=== PATIENT | female | born 1945 | race Caucasian/White ===

== ENCOUNTER 2019-08-08 22:18 | Inpatient (IN) ==
[2019-08-09] MEDS ORDERED: (Diclofenac Sodium [Voltaren] 2 GM) TP PRN (01:08)
[2019-08-09] MEDS ORDERED: Dextrose Gel 15 GM/37.5 ML TUBE PO PRN ×2 (01:21)
[2019-08-09] MEDS ORDERED: D5% in Water 1,000 ML IVC PRN (01:21)
[2019-08-09] MEDS ORDERED: *HR* Dextrose 50 % in Water (Syg) 50 ML SYRINGE IVP PRN (01:21)
[2019-08-09] MEDS: diazePAM 5 MG TABLET PO PRN ×3 (01:34→20:31)
[2019-08-09 06:24] LABS: Basophils # 0.1 K/mcL (0.0-0.2); Basophils % 0.9 %; Eosinophils # 0.1 K/mcL (0.0-0.6); Eosinophils % 2.5 %; Hematocrit 40.4 % (35.3-44.9); Hemoglobin 13.7 g/dL (11.5-15.4); Immature Granulocytes % 0.4 % (0-4); Lymphocytes # 2.4 K/mcL (0.6-4.6); Lymphocytes % 43.9 %; Mean Corpuscular HGB Conc 33.9 g/dL (31.6-35.5); Mean Corpuscular Hemoglobin 30.9 pg (28.0-33.3); Mean Corpuscular Volume 91.2 fL (83.0-100.0); Mean Platelet Volume 11.1 fL (9.4-12.4); Monocytes # 0.4 K/mcL (0.0-1.3); Monocytes % 6.7 %; Neutrophils # 2.5 K/mcL (1.6-8.9); Platelet Count 190 K/mcL (140-400); Red Blood Count 4.43 M/mcL (3.82-4.97); Red Cell Distribution Width 12.6 % (11.5-14.5); Segmented Neutrophils % 45.6 %; White Blood Count 5.5 K/mcL (4.3-11.1)
[2019-08-09 07:23] LABS: Platelet Estimate Normal (Normal)
[2019-08-09] MEDS ORDERED: *HR* Dextrose 50 % in Water (Vial) 50 ML VIAL IVP PRN (08:40)
[2019-08-09] MEDS: Metoprolol XL (24 HR) Succ 50 MG TAB.ER.24H PO SCH (08:42)
[2019-08-09] MEDS: Aspirin Enteric Coated 81 MG Tablet PO SCH (08:42)
[2019-08-09] MEDS: Carbidopa/Levodopa 25/100 TABLET PO SCH ×4 (08:42→20:31)
[2019-08-09] MEDS: BuPROPion SR (12 HR) 100 MG TABLET PO SCH ×2 (08:42→20:32)
[2019-08-09] MEDS: *HR* GlipiZIDE XL (24 HR) 2.5 MG TABLET PO SCH (08:42)
[2019-08-09] MEDS ORDERED: Insulin DETEMIR 100 UNIT/ML per UNIT SQ SCH (09:00)
[2019-08-09 09:45] LABS: Estimated Average Glucose 235 mg/dl
[2019-08-09] MEDS ORDERED: Tobramycin/Dex Opth DROPS 2.5 ML BOTTLE LEFT EYE SCH (12:15)
[2019-08-09] MEDS: Tobramycin/Dex Opth DROPS 2.5 ML BOTTLE LEFT EYE SCH ×2 (13:21→16:50)
[2019-08-09] MEDS: Tobramycin/Dex Opth DROPS 2.5 ML BOTTLE RIGHT EYE SCH ×2 (13:21→16:50)
[2019-08-09] MEDS: Famotidine 20 MG TABLET PO SCH (20:32)
[2019-08-10] MEDS: Tobramycin/Dex Opth DROPS 2.5 ML BOTTLE LEFT EYE SCH ×3 (00:40→16:50)
[2019-08-10] MEDS: Tobramycin/Dex Opth DROPS 2.5 ML BOTTLE RIGHT EYE SCH ×3 (00:40→16:50)
[2019-08-10] MEDS: *HR* Enoxaparin 40 MG/0.4 ML SYRINGE SQ SCH (06:46)
[2019-08-10] MEDS: Aspirin Enteric Coated 81 MG Tablet PO SCH (08:36)
[2019-08-10] MEDS: Metoprolol XL (24 HR) Succ 50 MG TAB.ER.24H PO SCH (08:36)
[2019-08-10] MEDS: Carbidopa/Levodopa 25/100 TABLET PO SCH ×4 (08:37→21:02)
[2019-08-10] MEDS: Insulin DETEMIR 100 UNIT/ML X5UNITS SQ SCH (08:37)
[2019-08-10] MEDS: *HR* GlipiZIDE XL (24 HR) 2.5 MG TABLET PO SCH (08:37)
[2019-08-10] MEDS: BuPROPion SR (12 HR) 100 MG TABLET PO SCH ×2 (08:37→21:02)
[2019-08-10] MEDS: Insulin LISPRO 300 UNITS/3 ML VIAL SQ SCH ×3 (12:11→21:00)
[2019-08-10] MEDS: Acetaminophen 325 MG TABLET PO PRN (16:59)
[2019-08-10] MEDS: Famotidine 20 MG TABLET PO SCH (21:02)
[2019-08-10] MEDS: *HR* OxyCODONE/APAP 10/325 TABLET PO PRN (21:44)
[2019-08-11] MEDS: Tobramycin/Dex Opth DROPS 2.5 ML BOTTLE RIGHT EYE SCH ×4 (00:21→21:42)
[2019-08-11] MEDS: Tobramycin/Dex Opth DROPS 2.5 ML BOTTLE LEFT EYE SCH ×4 (00:22→21:43)
[2019-08-11] MEDS: *HR* Enoxaparin 40 MG/0.4 ML SYRINGE SQ SCH (06:01)
[2019-08-11] MEDS: Insulin DETEMIR 100 UNIT/ML X5UNITS SQ SCH (08:40)
[2019-08-11] MEDS: Metoprolol XL (24 HR) Succ 50 MG TAB.ER.24H PO SCH (08:42)
[2019-08-11] MEDS: *HR* GlipiZIDE XL (24 HR) 2.5 MG TABLET PO SCH (08:42)
[2019-08-11] MEDS: BuPROPion SR (12 HR) 100 MG TABLET PO SCH ×2 (08:42→21:41)
[2019-08-11] MEDS: Aspirin Enteric Coated 81 MG Tablet PO SCH (08:42)
[2019-08-11] MEDS: Insulin LISPRO 300 UNITS/3 ML VIAL SQ SCH ×4 (08:43→21:42)
[2019-08-11] MEDS: Carbidopa/Levodopa 25/100 TABLET PO SCH ×4 (08:43→21:41)
[2019-08-11] MEDS: Acetaminophen 325 MG TABLET PO PRN (08:45)
[2019-08-11] MEDS: Famotidine 20 MG TABLET PO SCH (21:41)
[2019-08-12] MEDS: *HR* Enoxaparin 40 MG/0.4 ML SYRINGE SQ SCH (06:50)
[2019-08-12] MEDS: Insulin DETEMIR 100 UNIT/ML X5UNITS SQ SCH (09:35)
[2019-08-12] MEDS: Tobramycin/Dex Opth DROPS 2.5 ML BOTTLE RIGHT EYE SCH ×3 (09:36→23:32)
[2019-08-12] MEDS: Insulin LISPRO 300 UNITS/3 ML VIAL SQ SCH ×4 (09:36→20:24)
[2019-08-12] MEDS: Tobramycin/Dex Opth DROPS 2.5 ML BOTTLE LEFT EYE SCH ×3 (09:36→23:32)
[2019-08-12] MEDS: Metoprolol XL (24 HR) Succ 50 MG TAB.ER.24H PO SCH (09:37)
[2019-08-12] MEDS: Aspirin Enteric Coated 81 MG Tablet PO SCH (09:37)
[2019-08-12] MEDS: *HR* GlipiZIDE XL (24 HR) 2.5 MG TABLET PO SCH (09:37)
[2019-08-12] MEDS: Carbidopa/Levodopa 25/100 TABLET PO SCH ×4 (09:37→20:24)
[2019-08-12] MEDS: BuPROPion SR (12 HR) 100 MG TABLET PO SCH ×2 (09:41→20:24)
[2019-08-12] MEDS: Famotidine 20 MG TABLET PO SCH (20:24)
[2019-08-13] MEDS: *HR* Enoxaparin 40 MG/0.4 ML SYRINGE SQ SCH (05:22)
[2019-08-13] MEDS: Insulin LISPRO 300 UNITS/3 ML VIAL SQ SCH ×4 (08:08→20:20)
[2019-08-13] MEDS: *HR* GlipiZIDE XL (24 HR) 2.5 MG TABLET PO SCH (08:32)
[2019-08-13] MEDS: BuPROPion SR (12 HR) 100 MG TABLET PO SCH ×2 (08:32→20:22)
[2019-08-13] MEDS: Metoprolol XL (24 HR) Succ 50 MG TAB.ER.24H PO SCH (08:32)
[2019-08-13] MEDS: Carbidopa/Levodopa 25/100 TABLET PO SCH ×4 (08:33→20:22)
[2019-08-13] MEDS: Insulin DETEMIR 100 UNIT/ML X5UNITS SQ SCH (08:33)
[2019-08-13] MEDS: Aspirin Enteric Coated 81 MG Tablet PO SCH (08:33)
[2019-08-13] MEDS: Tobramycin/Dex Opth DROPS 2.5 ML BOTTLE LEFT EYE SCH ×2 (08:34→16:38)
[2019-08-13] MEDS: Tobramycin/Dex Opth DROPS 2.5 ML BOTTLE RIGHT EYE SCH ×2 (08:34→16:38)
[2019-08-13] MEDS: *HR* OxyCODONE/APAP 10/325 TABLET PO PRN (14:42)
[2019-08-13] MEDS: Famotidine 20 MG TABLET PO SCH (20:22)
[2019-08-14] MEDS: Tobramycin/Dex Opth DROPS 2.5 ML BOTTLE RIGHT EYE SCH ×3 (00:02→15:22)
[2019-08-14] MEDS: Tobramycin/Dex Opth DROPS 2.5 ML BOTTLE LEFT EYE SCH ×3 (00:02→15:22)
[2019-08-14] MEDS: *HR* Enoxaparin 40 MG/0.4 ML SYRINGE SQ SCH (06:19)
[2019-08-14] MEDS: Insulin LISPRO 300 UNITS/3 ML VIAL SQ SCH ×4 (08:18→20:03)
[2019-08-14] MEDS: Insulin DETEMIR 100 UNIT/ML X5UNITS SQ SCH (08:19)
[2019-08-14] MEDS: Aspirin Enteric Coated 81 MG Tablet PO SCH (08:26)
[2019-08-14] MEDS: BuPROPion SR (12 HR) 100 MG TABLET PO SCH ×2 (08:26→20:06)
[2019-08-14] MEDS: *HR* OxyCODONE/APAP 10/325 TABLET PO PRN (08:26)
[2019-08-14] MEDS: Metoprolol XL (24 HR) Succ 50 MG TAB.ER.24H PO SCH (08:28)
[2019-08-14] MEDS: Carbidopa/Levodopa 25/100 TABLET PO SCH ×4 (08:28→20:03)
[2019-08-14] MEDS: *HR* GlipiZIDE XL (24 HR) 2.5 MG TABLET PO SCH (08:28)
[2019-08-14] MEDS: Famotidine 20 MG TABLET PO SCH (20:03)
[2019-08-15] MEDS: Tobramycin/Dex Opth DROPS 2.5 ML BOTTLE LEFT EYE SCH ×5 (00:11→23:26)
[2019-08-15] MEDS: Tobramycin/Dex Opth DROPS 2.5 ML BOTTLE RIGHT EYE SCH ×5 (00:11→23:25)
[2019-08-15] MEDS: *HR* Enoxaparin 40 MG/0.4 ML SYRINGE SQ SCH (06:07)
[2019-08-15] MEDS: Carbidopa/Levodopa 25/100 TABLET PO SCH ×4 (09:08→19:36)
[2019-08-15] MEDS: BuPROPion SR (12 HR) 100 MG TABLET PO SCH ×2 (09:08→19:36)
[2019-08-15] MEDS: Aspirin Enteric Coated 81 MG Tablet PO SCH (09:08)
[2019-08-15] MEDS: Metoprolol XL (24 HR) Succ 50 MG TAB.ER.24H PO SCH (09:08)
[2019-08-15] MEDS: *HR* GlipiZIDE XL (24 HR) 2.5 MG TABLET PO SCH (09:08)
[2019-08-15] MEDS: Insulin DETEMIR 100 UNIT/ML X5UNITS SQ SCH (09:08)
[2019-08-15] MEDS: Insulin LISPRO 300 UNITS/3 ML VIAL SQ SCH ×4 (09:09→19:31)
[2019-08-15] MEDS: *HR* OxyCODONE/APAP 10/325 TABLET PO PRN (12:13)
[2019-08-15] MEDS: Famotidine 20 MG TABLET PO SCH (19:36)
[2019-08-16] MEDS: *HR* Enoxaparin 40 MG/0.4 ML SYRINGE SQ SCH (04:26)
[2019-08-16] MEDS: Insulin LISPRO 300 UNITS/3 ML VIAL SQ SCH ×4 (07:42→19:42)
[2019-08-16] MEDS: Insulin DETEMIR 100 UNIT/ML X5UNITS SQ SCH (08:36)
[2019-08-16] MEDS: Tobramycin/Dex Opth DROPS 2.5 ML BOTTLE RIGHT EYE SCH ×2 (08:37→17:00)
[2019-08-16] MEDS: Tobramycin/Dex Opth DROPS 2.5 ML BOTTLE LEFT EYE SCH ×2 (08:37→17:00)
[2019-08-16] MEDS: BuPROPion SR (12 HR) 100 MG TABLET PO SCH ×2 (08:38→19:42)
[2019-08-16] MEDS: Metoprolol XL (24 HR) Succ 50 MG TAB.ER.24H PO SCH (08:39)
[2019-08-16] MEDS: Carbidopa/Levodopa 25/100 TABLET PO SCH ×4 (08:39→19:42)
[2019-08-16] MEDS: Aspirin Enteric Coated 81 MG Tablet PO SCH (08:39)
[2019-08-16] MEDS: *HR* GlipiZIDE XL (24 HR) 2.5 MG TABLET PO SCH (08:41)
[2019-08-16] MEDS: *HR* OxyCODONE/APAP 10/325 TABLET PO PRN (08:45)
[2019-08-16] MEDS: Famotidine 20 MG TABLET PO SCH (19:42)
[2019-08-17] MEDS: Tobramycin/Dex Opth DROPS 2.5 ML BOTTLE RIGHT EYE SCH ×2 (00:48→09:27)
[2019-08-17] MEDS: Tobramycin/Dex Opth DROPS 2.5 ML BOTTLE LEFT EYE SCH ×2 (00:48→09:27)
[2019-08-17] MEDS: *HR* Enoxaparin 40 MG/0.4 ML SYRINGE SQ SCH (05:56)
[2019-08-17 07:28] VITALS: BP 124/56
[2019-08-17] MEDS: *HR* GlipiZIDE XL (24 HR) 2.5 MG TABLET PO SCH (09:25)
[2019-08-17] MEDS: BuPROPion SR (12 HR) 100 MG TABLET PO SCH (09:25)
[2019-08-17] MEDS: Aspirin Enteric Coated 81 MG Tablet PO SCH (09:26)
[2019-08-17] MEDS: Insulin DETEMIR 100 UNIT/ML X5UNITS SQ SCH (09:26)
[2019-08-17] MEDS: Metoprolol XL (24 HR) Succ 50 MG TAB.ER.24H PO SCH (09:26)
[2019-08-17] MEDS: Insulin LISPRO 300 UNITS/3 ML VIAL SQ SCH (09:27)
[2019-08-17] MEDS: Carbidopa/Levodopa 25/100 TABLET PO SCH (09:36)
== END 2019-08-17 11:24 | disposition home or self-care (01) | DRG 72 ==
LOC: INPPIK 23:47
PROVIDERS: ADMIT Internal Medicine; ATTEND Internal Medicine

== ENCOUNTER 2021-08-14 03:02 | Inpatient (IN) ==
[2021-08-14] MEDS ORDERED: Melatonin 3 MG TABLET PO PRN (06:37)
[2021-08-14] MEDS ORDERED: Naloxone 0.4 MG/ML INJ IVP PRN (06:37)
[2021-08-14] MEDS: Aspirin Enteric Coated 81 MG Tablet PO SCH (09:49)
[2021-08-14] MEDS: CYCLOSPORINE 0.05% OP SCH (09:49)
[2021-08-14] MEDS ORDERED: diazePAM 10 MG TABLET PO PRN (13:42)
[2021-08-14] MEDS: *HR* OxyCODONE/APAP 10/325 TABLET PO PRN (14:06)
[2021-08-14] MEDS ORDERED: diazePAM 5 MG TABLET PO PRN (14:15)
[2021-08-14] MEDS ORDERED: Dextrose Gel 15 GM/37.5 ML TUBE PO PRN ×2 (15:20)
[2021-08-14] MEDS ORDERED: D5% in Water 1,000 ML IVC PRN (15:20)
[2021-08-14] MEDS ORDERED: *HR* Dextrose 50 % in Water (Syg) 50 ML SYRINGE IVP PRN (15:20)
[2021-08-14] MEDS ORDERED: Acetaminophen 325 MG TABLET PO PRN (15:25)
[2021-08-14] MEDS ORDERED: Ondansetron ODT 4 MG TAB.RAPDIS SL PRN (15:26)
[2021-08-14] MEDS: Insulin LISPRO 300 UNITS/3 ML VIAL SUBQ SCH ×2 (16:24→20:54)
[2021-08-14] MEDS: carvediloL 6.25 MG TABLET PO SCH (16:24)
[2021-08-14] MEDS: Gabapentin 300 MG CAPSULE PO SCH (20:20)
[2021-08-14] MEDS: QUEtiapine Fumarate 25 MG TABLET PO SCH (20:20)
[2021-08-14] MEDS: BuPROPion SR (12 HR) 100 MG TABLET PO SCH (21:07)
[2021-08-15] MEDS: *HR* Enoxaparin 40 MG/0.4 ML SYRINGE SQ SCH (05:22)
[2021-08-15 06:50] LABS: Basophils % 0.8 %; Eosinophils # 0.1 K/mcL (0.0-0.6); Eosinophils % 2.7 %; Hematocrit 35.9 % (35.3-44.9); Immature Granulocytes % 0.2 % (0-4); Lymphocytes # 1.8 K/mcL (0.6-4.6); Lymphocytes % 36.1 %; Mean Corpuscular HGB Conc 33.4 g/dL (31.6-35.5); Mean Corpuscular Hemoglobin 30.2 pg (28.0-33.3); Mean Corpuscular Volume 90.2 fL (83.0-100.0); Mean Platelet Volume 9.4 fL (9.4-12.4); Monocytes # 0.4 K/mcL (0.0-1.3); Monocytes % 8.2 %; Neutrophils # 2.5 K/mcL (1.6-8.9); Platelet Count 173 K/mcL (140-400); Red Blood Count 3.98 M/mcL (3.82-4.97); Red Cell Distribution Width 12.5 % (11.5-14.5); White Blood Count 4.9 K/mcL (4.3-11.1)
[2021-08-15 07:07] LABS: BUN/Creatinine Ratio 14 (6-26); Blood Urea Nitrogen 10 mg/dL (8-23); Calcium 8.9 mg/dL (8.6-10.3); Carbon Dioxide 30 mEq/L (23-29); Chloride 102 mEq/L (98-107); Glucose 162 mg/dL (70-105); Osmolality,Calculated 291 (280-300); Potassium 3.7 mEq/L (3.5-5.1); Sodium 139 mEq/L (136-145); eGFR For African Americans > 60 (> 60); eGFR For Non-African Americans > 60 (> 60)
[2021-08-15] MEDS: Insulin LISPRO 300 UNITS/3 ML VIAL SUBQ SCH ×4 (08:47→21:28)
[2021-08-15] MEDS: Gabapentin 300 MG CAPSULE PO SCH ×2 (08:50→21:39)
[2021-08-15] MEDS: BuPROPion SR (12 HR) 100 MG TABLET PO SCH ×2 (08:50→21:39)
[2021-08-15] MEDS: Aspirin Enteric Coated 81 MG Tablet PO SCH (08:50)
[2021-08-15] MEDS: carvediloL 6.25 MG TABLET PO SCH ×2 (08:50→16:08)
[2021-08-15] MEDS: CYCLOSPORINE 0.05% OP SCH (08:51)
[2021-08-15] MEDS: Insulin DETEMIR 100 UNIT/ML X5UNITS SUBQ SCH (08:51)
[2021-08-15] MEDS: *HR* OxyCODONE/APAP 10/325 TABLET PO PRN (14:00)
[2021-08-15] MEDS: QUEtiapine Fumarate 25 MG TABLET PO SCH (21:39)
[2021-08-16] MEDS: Piperacillin/Tazobactam 3.375 GM in 0.9 % Sodium Chloride Mini Bag 100 ML IVPB SCH ×3 (00:31→17:03)
[2021-08-16] MEDS: *HR* Enoxaparin 40 MG/0.4 ML SYRINGE SQ SCH (05:22)
[2021-08-16 08:06] LABS: Basophils % 0.8 %; Eosinophils # 0.2 K/mcL (0.0-0.6); Hematocrit 37.2 % (35.3-44.9); Hemoglobin 12.2 g/dL (11.5-15.4); Immature Granulocytes % 0.2 % (0-4); Lymphocytes % 38.7 %; Mean Corpuscular HGB Conc 32.8 g/dL (31.6-35.5); Mean Corpuscular Hemoglobin 29.7 pg (28.0-33.3); Mean Corpuscular Volume 90.5 fL (83.0-100.0); Mean Platelet Volume 9.2 fL (9.4-12.4); Monocytes # 0.4 K/mcL (0.0-1.3); Monocytes % 8.1 %; Neutrophils # 2.5 K/mcL (1.6-8.9); Platelet Count 179 K/mcL (140-400); Red Blood Count 4.11 M/mcL (3.82-4.97); Red Cell Distribution Width 12.7 % (11.5-14.5); Segmented Neutrophils % 48.2 %; White Blood Count 5.2 K/mcL (4.3-11.1)
[2021-08-16] MEDS: Gabapentin 300 MG CAPSULE PO SCH ×2 (08:59→20:12)
[2021-08-16] MEDS: BuPROPion SR (12 HR) 100 MG TABLET PO SCH ×2 (08:59→20:12)
[2021-08-16] MEDS: *HR* OxyCODONE/APAP 10/325 TABLET PO PRN ×2 (08:59→17:03)
[2021-08-16] MEDS: Capsaicin 0.025% 60 GM TUBE TP PRN (08:59)
[2021-08-16] MEDS: Aspirin Enteric Coated 81 MG Tablet PO SCH (08:59)
[2021-08-16] MEDS: carvediloL 6.25 MG TABLET PO SCH ×2 (09:00→17:03)
[2021-08-16] MEDS: Insulin DETEMIR 100 UNIT/ML X5UNITS SUBQ SCH (09:00)
[2021-08-16] MEDS: CYCLOSPORINE 0.05% OP SCH (09:00)
[2021-08-16] MEDS: Insulin LISPRO 300 UNITS/3 ML VIAL SUBQ SCH ×4 (09:01→20:13)
[2021-08-16 09:30] LABS: BUN/Creatinine Ratio 17 (6-26); Blood Urea Nitrogen 15 mg/dL (8-23); Carbon Dioxide 28 mEq/L (23-29); Chloride 102 mEq/L (98-107); Glucose 158 mg/dL (70-105); Osmolality,Calculated 292 (280-300); Potassium 3.8 mEq/L (3.5-5.1); Sodium 139 mEq/L (136-145); eGFR For African Americans > 60 (> 60); eGFR For Non-African Americans > 60 (> 60)
[2021-08-16] MEDS: QUEtiapine Fumarate 25 MG TABLET PO SCH (20:12)
[2021-08-17] MEDS: Piperacillin/Tazobactam 3.375 GM in 0.9 % Sodium Chloride Mini Bag 100 ML IVPB SCH ×3 (00:09→17:13)
[2021-08-17] MEDS: *HR* Enoxaparin 40 MG/0.4 ML SYRINGE SQ SCH (05:45)
[2021-08-17] MEDS: *HR* OxyCODONE/APAP 10/325 TABLET PO PRN (08:19)
[2021-08-17] MEDS: BuPROPion SR (12 HR) 100 MG TABLET PO SCH (08:19)
[2021-08-17] MEDS: Gabapentin 300 MG CAPSULE PO SCH (08:19)
[2021-08-17] MEDS: carvediloL 6.25 MG TABLET PO SCH ×2 (08:20→16:58)
[2021-08-17] MEDS: Aspirin Enteric Coated 81 MG Tablet PO SCH (08:20)
[2021-08-17] MEDS: CYCLOSPORINE 0.05% OP SCH (08:20)
[2021-08-17] MEDS: Insulin LISPRO 300 UNITS/3 ML VIAL SUBQ SCH ×3 (08:20→16:59)
[2021-08-17] MEDS: Capsaicin 0.025% 60 GM TUBE TP PRN (08:26)
[2021-08-17] MEDS ORDERED: Insulin DETEMIR 100 UNIT/ML X5UNITS SUBQ SCH (09:00)
[2021-08-17 09:48] LABS: Basophils # 0.1 K/mcL (0.0-0.2); Eosinophils # 0.3 K/mcL (0.0-0.6); Eosinophils % 5.4 %; Hematocrit 36.2 % (35.3-44.9); Hemoglobin 11.9 g/dL (11.5-15.4); Immature Granulocytes % 0.4 % (0-4); Lymphocytes # 1.6 K/mcL (0.6-4.6); Lymphocytes % 34.2 %; Mean Corpuscular HGB Conc 32.9 g/dL (31.6-35.5); Mean Corpuscular Hemoglobin 30.1 pg (28.0-33.3); Mean Corpuscular Volume 91.6 fL (83.0-100.0); Mean Platelet Volume 9.5 fL (9.4-12.4); Monocytes # 0.4 K/mcL (0.0-1.3); Monocytes % 7.5 %; Neutrophils # 2.5 K/mcL (1.6-8.9); Platelet Count 197 K/mcL (140-400); Red Blood Count 3.95 M/mcL (3.82-4.97); Red Cell Distribution Width 12.7 % (11.5-14.5); Segmented Neutrophils % 51.5 %; White Blood Count 4.8 K/mcL (4.3-11.1)
[2021-08-17 10:03] LABS: BUN/Creatinine Ratio 16 (6-26); Blood Urea Nitrogen 13 mg/dL (8-23); Calcium 8.8 mg/dL (8.6-10.3); Carbon Dioxide 31 mEq/L (23-29); Chloride 103 mEq/L (98-107); Glucose 272 mg/dL (70-105); Osmolality,Calculated 300 (280-300); Potassium 3.9 mEq/L (3.5-5.1); Sodium 140 mEq/L (136-145); eGFR For African Americans > 60 (> 60); eGFR For Non-African Americans > 60 (> 60)
[2021-08-17 14:59] VITALS: BP 183/91; PULSE 76; RESP 18; TEMP 98.7; O2SAT 99
[2021-08-18] MEDS ORDERED: Ergocalciferol (VIT D2) 50,000 UNIT (1.25MG) CAP PO SCH (09:00)
== END 2021-08-17 18:36 | disposition other institution (70) | DRG 556 ==
LOC: INPPIK
PROVIDERS: ADMIT Student in an Organized Health Care Education/Training Program; ATTEND Internal Medicine

== ENCOUNTER 2021-08-15 18:33 | Inpatient (IN) ==
[2021-08-17] MEDS: *HR* OxyCODONE/APAP 10/325 TABLET PO PRN (18:40)
[2021-08-17] MEDS ORDERED: Ondansetron ODT 4 MG TAB.RAPDIS SL PRN (18:48)
[2021-08-17] MEDS ORDERED: D5% in Water 1,000 ML IVC PRN (18:50)
[2021-08-17] MEDS ORDERED: *HR* Dextrose 50 % in Water (Syg) 50 ML SYRINGE IVP PRN (18:50)
[2021-08-17] MEDS ORDERED: Dextrose Gel 15 GM/37.5 ML TUBE PO PRN ×2 (18:50)
[2021-08-17] MEDS: BuPROPion SR (12 HR) 100 MG TABLET PO SCH (20:15)
[2021-08-17] MEDS: Insulin LISPRO 300 UNITS/3 ML VIAL SUBQ SCH (20:16)
[2021-08-17] MEDS: Gabapentin 300 MG CAPSULE PO SCH (20:16)
[2021-08-17] MEDS: QUEtiapine Fumarate 25 MG TABLET PO SCH (20:16)
[2021-08-18] MEDS: Piperacillin/Tazobactam 3.375 GM VIAL IVPB SCH (00:21)
[2021-08-18] MEDS: *HR* Enoxaparin 40 MG/0.4 ML SYRINGE SQ SCH ×2 (05:44→10:08)
[2021-08-18 08:37] LABS: Basophils % 0.8 %; Eosinophils # 0.2 K/mcL (0.0-0.6); Eosinophils % 4.6 %; Hematocrit 36.2 % (35.3-44.9); Hemoglobin 11.8 g/dL (11.5-15.4); Immature Granulocytes % 0.2 % (0-4); Lymphocytes # 2.1 K/mcL (0.6-4.6); Lymphocytes % 40.7 %; Mean Corpuscular HGB Conc 32.6 g/dL (31.6-35.5); Mean Corpuscular Hemoglobin 29.9 pg (28.0-33.3); Mean Corpuscular Volume 91.6 fL (83.0-100.0); Mean Platelet Volume 9.7 fL (9.4-12.4); Monocytes # 0.4 K/mcL (0.0-1.3); Monocytes % 6.8 %; Neutrophils # 2.4 K/mcL (1.6-8.9); Platelet Count 212 K/mcL (140-400); Red Blood Count 3.95 M/mcL (3.82-4.97); Red Cell Distribution Width 12.8 % (11.5-14.5); Segmented Neutrophils % 46.9 %; White Blood Count 5.2 K/mcL (4.3-11.1)
[2021-08-18 08:47] LABS: BUN/Creatinine Ratio 16 (6-26); Blood Urea Nitrogen 12 mg/dL (8-23); Calcium 8.9 mg/dL (8.6-10.3); Carbon Dioxide 29 mEq/L (23-29); Chloride 106 mEq/L (98-107); Glucose 140 mg/dL (70-105); Osmolality,Calculated 296 (280-300); Potassium 3.8 mEq/L (3.5-5.1); Sodium 142 mEq/L (136-145); eGFR For African Americans > 60 (> 60); eGFR For Non-African Americans > 60 (> 60)
[2021-08-18] MEDS ORDERED: NON-FORMULARY MEDICATION 1 EACH EACH (Insulin Glargine,Hum.Rec.Anlog [Lantus Solostar] 100 SQ SCH (09:00)
[2021-08-18] MEDS ORDERED: Piperacillin/Tazobactam 3.375 GM in 0.9 % Sodium Chloride Mini Bag 100 ML IVPB SCH (10:00)
[2021-08-18] MEDS: BuPROPion SR (12 HR) 100 MG TABLET PO SCH ×2 (10:07→18:23)
[2021-08-18] MEDS: carvediloL 6.25 MG TABLET PO SCH ×2 (10:07→18:23)
[2021-08-18] MEDS: Aspirin Enteric Coated 81 MG Tablet PO SCH (10:07)
[2021-08-18] MEDS: Gabapentin 300 MG CAPSULE PO SCH ×2 (10:07→20:14)
[2021-08-18] MEDS: *HR* GlipiZIDE XL (24 HR) 2.5 MG TABLET PO SCH (10:07)
[2021-08-18] MEDS: Insulin DETEMIR 100 UNIT/ML X5UNITS SUBQ SCH (10:10)
[2021-08-18] MEDS: Insulin LISPRO 300 UNITS/3 ML VIAL SUBQ SCH ×4 (10:14→20:29)
[2021-08-18] MEDS: Ergocalciferol (VIT D2) 50,000 UNIT (1.25MG) CAP PO SCH (10:20)
[2021-08-18 18:20] LABS: Basophils % 0.5 %; Eosinophils # 0.2 K/mcL (0.0-0.6); Eosinophils % 3.6 %; Hematocrit 34.9 % (35.3-44.9); Hemoglobin 11.8 g/dL (11.5-15.4); Immature Granulocytes % 0.3 % (0-4); Lymphocytes # 2.6 K/mcL (0.6-4.6); Lymphocytes % 42.3 %; Mean Corpuscular HGB Conc 33.8 g/dL (31.6-35.5); Mean Corpuscular Hemoglobin 30.3 pg (28.0-33.3); Mean Corpuscular Volume 89.7 fL (83.0-100.0); Mean Platelet Volume 9.3 fL (9.4-12.4); Monocytes # 0.4 K/mcL (0.0-1.3); Monocytes % 6.2 %; Neutrophils # 2.9 K/mcL (1.6-8.9); Platelet Count 217 K/mcL (140-400); Red Blood Count 3.89 M/mcL (3.82-4.97); Red Cell Distribution Width 12.8 % (11.5-14.5); Segmented Neutrophils % 47.1 %; White Blood Count 6.1 K/mcL (4.3-11.1)
[2021-08-18 18:42] LABS: Alanine Aminotransferase 14 Units/L (7-52); Albumin 3.6 g/dL (3.5-5.7); Albumin/Globulin Ratio 1.3 (1.1-2.2); Alkaline Phosphatase 70 Units/L (34-104); Aspartate Amino Transferase 19 Units/L (13-39); BUN/Creatinine Ratio 15 (6-26); Bilirubin,Total 0.4 mg/dL (0.3-1.0); Blood Urea Nitrogen 11 mg/dL (8-23); Carbon Dioxide 29 mEq/L (23-29); Chloride 103 mEq/L (98-107); Globulin 2.8 g/dL (2.4-3.5); Glucose 163 mg/dL (70-105); Magnesium 1.6 mg/dL (1.6-2.6); Osmolality,Calculated 295 (280-300); Potassium 3.6 mEq/L (3.5-5.1); Sodium 141 mEq/L (136-145); Total Protein 6.4 g/dL (6.4-8.9); eGFR For African Americans > 60 (> 60); eGFR For Non-African Americans > 60 (> 60)
[2021-08-18] MEDS: QUEtiapine Fumarate 25 MG TABLET PO SCH (20:14)
[2021-08-19] MEDS: BuPROPion SR (12 HR) 100 MG TABLET PO SCH ×2 (06:04→21:02)
[2021-08-19] MEDS: Aspirin Enteric Coated 81 MG Tablet PO SCH (08:17)
[2021-08-19] MEDS: *HR* GlipiZIDE XL (24 HR) 2.5 MG TABLET PO SCH (08:17)
[2021-08-19] MEDS: carvediloL 6.25 MG TABLET PO SCH ×2 (08:18→17:20)
[2021-08-19] MEDS: Gabapentin 300 MG CAPSULE PO SCH ×2 (08:18→21:02)
[2021-08-19] MEDS: Insulin LISPRO 300 UNITS/3 ML VIAL SUBQ SCH ×4 (08:19→21:13)
[2021-08-19] MEDS: Capsaicin 0.025% 60 GM TUBE TP PRN (08:20)
[2021-08-19] MEDS: Insulin DETEMIR 100 UNIT/ML X5UNITS SUBQ SCH (08:25)
[2021-08-19] MEDS: *HR* OxyCODONE/APAP 10/325 TABLET PO PRN ×2 (08:25→17:20)
[2021-08-19] MEDS: Piperacillin/Tazobactam 3.375 GM VIAL IVPB SCH (10:50)
[2021-08-19] MEDS: QUEtiapine Fumarate 25 MG TABLET PO SCH (21:02)
[2021-08-19] MEDS: diazePAM 5 MG TABLET PO PRN (21:11)
[2021-08-20] MEDS: *HR* OxyCODONE/APAP 10/325 TABLET PO PRN ×2 (06:00→17:25)
[2021-08-20] MEDS: *HR* Enoxaparin 40 MG/0.4 ML SYRINGE SQ SCH (06:00)
[2021-08-20] MEDS: BuPROPion SR (12 HR) 100 MG TABLET PO SCH ×2 (06:01→20:02)
[2021-08-20] MEDS: carvediloL 6.25 MG TABLET PO SCH ×2 (08:26→17:25)
[2021-08-20] MEDS: Aspirin Enteric Coated 81 MG Tablet PO SCH (08:26)
[2021-08-20] MEDS: Acetaminophen 325 MG TABLET PO PRN ×2 (08:27→20:03)
[2021-08-20] MEDS: *HR* GlipiZIDE XL (24 HR) 2.5 MG TABLET PO SCH (08:28)
[2021-08-20] MEDS: Gabapentin 300 MG CAPSULE PO SCH ×2 (08:28→20:03)
[2021-08-20] MEDS: Insulin LISPRO 300 UNITS/3 ML VIAL SUBQ SCH ×4 (08:29→20:37)
[2021-08-20] MEDS: Capsaicin 0.025% 60 GM TUBE TP PRN (08:32)
[2021-08-20] MEDS: Insulin DETEMIR 100 UNIT/ML X5UNITS SUBQ SCH (08:52)
[2021-08-20] MEDS: diazePAM 5 MG TABLET PO PRN (20:02)
[2021-08-20] MEDS: QUEtiapine Fumarate 25 MG TABLET PO SCH (20:03)
[2021-08-21] MEDS: BuPROPion SR (12 HR) 100 MG TABLET PO SCH ×2 (06:14→20:05)
[2021-08-21] MEDS: *HR* Enoxaparin 40 MG/0.4 ML SYRINGE SQ SCH (06:14)
[2021-08-21] MEDS: Insulin LISPRO 300 UNITS/3 ML VIAL SUBQ SCH ×4 (08:22→19:43)
[2021-08-21] MEDS: Gabapentin 300 MG CAPSULE PO SCH ×2 (08:26→19:58)
[2021-08-21] MEDS: *HR* GlipiZIDE XL (24 HR) 2.5 MG TABLET PO SCH (08:26)
[2021-08-21] MEDS: Aspirin Enteric Coated 81 MG Tablet PO SCH (08:27)
[2021-08-21] MEDS: diazePAM 5 MG TABLET PO PRN ×2 (08:27→19:58)
[2021-08-21] MEDS: Insulin DETEMIR 100 UNIT/ML X5UNITS SUBQ SCH (08:27)
[2021-08-21] MEDS: carvediloL 6.25 MG TABLET PO SCH ×2 (08:27→16:54)
[2021-08-21] MEDS: *HR* OxyCODONE/APAP 10/325 TABLET PO PRN (18:36)
[2021-08-21] MEDS: QUEtiapine Fumarate 25 MG TABLET PO SCH (19:58)
[2021-08-22] MEDS: *HR* Enoxaparin 40 MG/0.4 ML SYRINGE SQ SCH (05:49)
[2021-08-22] MEDS: Insulin LISPRO 300 UNITS/3 ML VIAL SUBQ SCH ×4 (07:48→20:13)
[2021-08-22] MEDS: carvediloL 6.25 MG TABLET PO SCH ×2 (08:03→16:32)
[2021-08-22] MEDS: Aspirin Enteric Coated 81 MG Tablet PO SCH (08:03)
[2021-08-22] MEDS: BuPROPion SR (12 HR) 100 MG TABLET PO SCH ×2 (08:03→18:13)
[2021-08-22] MEDS: Gabapentin 300 MG CAPSULE PO SCH ×2 (08:05→20:12)
[2021-08-22] MEDS: *HR* GlipiZIDE XL (24 HR) 2.5 MG TABLET PO SCH (09:16)
[2021-08-22] MEDS: Insulin DETEMIR 100 UNIT/ML X5UNITS SUBQ SCH (10:01)
[2021-08-22] MEDS: *HR* OxyCODONE/APAP 10/325 TABLET PO PRN (20:12)
[2021-08-22] MEDS: diazePAM 5 MG TABLET PO PRN (20:12)
[2021-08-22] MEDS: QUEtiapine Fumarate 25 MG TABLET PO SCH (20:13)
[2021-08-23] MEDS: *HR* Enoxaparin 40 MG/0.4 ML SYRINGE SQ SCH (06:37)
[2021-08-23] MEDS: BuPROPion SR (12 HR) 100 MG TABLET PO SCH ×2 (06:38→18:19)
[2021-08-23] MEDS: Insulin LISPRO 300 UNITS/3 ML VIAL SUBQ SCH ×4 (07:17→20:28)
[2021-08-23] MEDS: carvediloL 6.25 MG TABLET PO SCH ×2 (07:18→16:39)
[2021-08-23] MEDS: *HR* OxyCODONE/APAP 10/325 TABLET PO PRN ×2 (07:21→18:19)
[2021-08-23] MEDS: Gabapentin 300 MG CAPSULE PO SCH ×2 (08:51→20:26)
[2021-08-23] MEDS: Aspirin Enteric Coated 81 MG Tablet PO SCH (08:51)
[2021-08-23] MEDS: Insulin DETEMIR 100 UNIT/ML X5UNITS SUBQ SCH (08:52)
[2021-08-23] MEDS: QUEtiapine Fumarate 25 MG TABLET PO SCH (20:27)
[2021-08-24] MEDS: *HR* Enoxaparin 40 MG/0.4 ML SYRINGE SQ SCH (06:16)
[2021-08-24] MEDS: BuPROPion SR (12 HR) 100 MG TABLET PO SCH ×2 (06:16→18:15)
[2021-08-24] MEDS: Insulin LISPRO 300 UNITS/3 ML VIAL SUBQ SCH ×4 (07:14→20:40)
[2021-08-24] MEDS: carvediloL 6.25 MG TABLET PO SCH ×2 (07:23→16:40)
[2021-08-24] MEDS: *HR* OxyCODONE/APAP 10/325 TABLET PO PRN ×3 (07:27→22:34)
[2021-08-24] MEDS: Aspirin Enteric Coated 81 MG Tablet PO SCH (08:50)
[2021-08-24] MEDS: Gabapentin 300 MG CAPSULE PO SCH ×2 (08:51→20:40)
[2021-08-24] MEDS: Insulin DETEMIR 100 UNIT/ML X5UNITS SUBQ SCH (08:55)
[2021-08-24] MEDS: QUEtiapine Fumarate 25 MG TABLET PO SCH (20:40)
[2021-08-25] MEDS: *HR* Enoxaparin 40 MG/0.4 ML SYRINGE SQ SCH (06:16)
[2021-08-25] MEDS: BuPROPion SR (12 HR) 100 MG TABLET PO SCH ×2 (06:16→20:36)
[2021-08-25] MEDS: *HR* OxyCODONE/APAP 10/325 TABLET PO PRN ×3 (06:43→20:37)
[2021-08-25] MEDS: Insulin LISPRO 300 UNITS/3 ML VIAL SUBQ SCH ×4 (08:09→22:26)
[2021-08-25] MEDS: diazePAM 5 MG TABLET PO PRN (08:10)
[2021-08-25] MEDS: Gabapentin 300 MG CAPSULE PO SCH ×2 (08:10→20:37)
[2021-08-25] MEDS: carvediloL 6.25 MG TABLET PO SCH ×2 (08:11→16:27)
[2021-08-25] MEDS: Aspirin Enteric Coated 81 MG Tablet PO SCH (08:11)
[2021-08-25] MEDS: Ergocalciferol (VIT D2) 50,000 UNIT (1.25MG) CAP PO SCH (08:21)
[2021-08-25] MEDS: Insulin DETEMIR 100 UNIT/ML X5UNITS SUBQ SCH (08:59)
[2021-08-25] MEDS: Acetaminophen 325 MG TABLET PO PRN (15:21)
[2021-08-25] MEDS: QUEtiapine Fumarate 25 MG TABLET PO SCH (20:37)
[2021-08-26] MEDS: *HR* Enoxaparin 40 MG/0.4 ML SYRINGE SQ SCH (05:29)
[2021-08-26] MEDS: BuPROPion SR (12 HR) 100 MG TABLET PO SCH ×2 (07:52→18:26)
[2021-08-26] MEDS: Aspirin Enteric Coated 81 MG Tablet PO SCH (07:53)
[2021-08-26] MEDS: carvediloL 6.25 MG TABLET PO SCH ×2 (07:53→18:04)
[2021-08-26] MEDS: Gabapentin 300 MG CAPSULE PO SCH ×2 (07:53→19:46)
[2021-08-26] MEDS: Insulin LISPRO 300 UNITS/3 ML VIAL SUBQ SCH ×4 (08:17→19:49)
[2021-08-26] MEDS: Insulin DETEMIR 100 UNIT/ML X5UNITS SUBQ SCH (08:58)
[2021-08-26] MEDS: *HR* OxyCODONE/APAP 10/325 TABLET PO PRN ×2 (13:17→19:46)
[2021-08-26] MEDS: QUEtiapine Fumarate 25 MG TABLET PO SCH (19:46)
[2021-08-27] MEDS: *HR* Enoxaparin 40 MG/0.4 ML SYRINGE SQ SCH (06:24)
[2021-08-27] MEDS: BuPROPion SR (12 HR) 100 MG TABLET PO SCH ×2 (06:24→20:20)
[2021-08-27] MEDS: Insulin LISPRO 300 UNITS/3 ML VIAL SUBQ SCH ×4 (07:48→20:39)
[2021-08-27] MEDS: Aspirin Enteric Coated 81 MG Tablet PO SCH (07:54)
[2021-08-27] MEDS: Gabapentin 300 MG CAPSULE PO SCH ×2 (07:54→20:20)
[2021-08-27] MEDS: carvediloL 6.25 MG TABLET PO SCH ×2 (07:55→15:55)
[2021-08-27] MEDS: Insulin DETEMIR 100 UNIT/ML X5UNITS SUBQ SCH (08:56)
[2021-08-27] MEDS: *HR* OxyCODONE/APAP 10/325 TABLET PO PRN (15:54)
[2021-08-27] MEDS: QUEtiapine Fumarate 25 MG TABLET PO SCH (20:20)
[2021-08-28] MEDS: *HR* Enoxaparin 40 MG/0.4 ML SYRINGE SQ SCH (06:36)
[2021-08-28] MEDS: BuPROPion SR (12 HR) 100 MG TABLET PO SCH ×2 (06:36→18:13)
[2021-08-28] MEDS: carvediloL 6.25 MG TABLET PO SCH ×2 (09:29→18:13)
[2021-08-28] MEDS: Aspirin Enteric Coated 81 MG Tablet PO SCH (09:30)
[2021-08-28] MEDS: Insulin DETEMIR 100 UNIT/ML X5UNITS SUBQ SCH (09:31)
[2021-08-28] MEDS: Insulin LISPRO 300 UNITS/3 ML VIAL SUBQ SCH ×4 (09:31→20:47)
[2021-08-28] MEDS: Gabapentin 300 MG CAPSULE PO SCH ×2 (09:31→20:46)
[2021-08-28] MEDS: *HR* OxyCODONE/APAP 10/325 TABLET PO PRN (18:24)
[2021-08-28] MEDS: QUEtiapine Fumarate 25 MG TABLET PO SCH (20:46)
[2021-08-29] MEDS: BuPROPion SR (12 HR) 100 MG TABLET PO SCH ×2 (06:45→18:40)
[2021-08-29] MEDS: *HR* Enoxaparin 40 MG/0.4 ML SYRINGE SQ SCH (06:45)
[2021-08-29] MEDS: Insulin LISPRO 300 UNITS/3 ML VIAL SUBQ SCH ×4 (07:50→20:36)
[2021-08-29] MEDS: Aspirin Enteric Coated 81 MG Tablet PO SCH (07:52)
[2021-08-29] MEDS: carvediloL 6.25 MG TABLET PO SCH ×2 (07:52→17:10)
[2021-08-29] MEDS: Insulin DETEMIR 100 UNIT/ML X5UNITS SUBQ SCH (07:53)
[2021-08-29] MEDS: Gabapentin 300 MG CAPSULE PO SCH ×2 (07:53→21:42)
[2021-08-29] MEDS: *HR* OxyCODONE/APAP 10/325 TABLET PO PRN ×2 (07:57→17:10)
[2021-08-29] MEDS: QUEtiapine Fumarate 25 MG TABLET PO SCH (21:42)
[2021-08-30] MEDS: *HR* Enoxaparin 40 MG/0.4 ML SYRINGE SQ SCH (06:23)
[2021-08-30] MEDS: BuPROPion SR (12 HR) 100 MG TABLET PO SCH ×2 (06:23→19:34)
[2021-08-30] MEDS: Insulin LISPRO 300 UNITS/3 ML VIAL SUBQ SCH ×4 (07:47→21:53)
[2021-08-30] MEDS: Gabapentin 300 MG CAPSULE PO SCH ×2 (07:55→19:34)
[2021-08-30] MEDS: Aspirin Enteric Coated 81 MG Tablet PO SCH (07:55)
[2021-08-30] MEDS: carvediloL 6.25 MG TABLET PO SCH ×2 (07:55→17:14)
[2021-08-30] MEDS: Insulin DETEMIR 100 UNIT/ML X5UNITS SUBQ SCH (08:46)
[2021-08-30] MEDS: amLODIPine 5 MG TABLET PO SCH (17:24)
[2021-08-30] MEDS: *HR* OxyCODONE/APAP 10/325 TABLET PO PRN (19:34)
[2021-08-30] MEDS: QUEtiapine Fumarate 25 MG TABLET PO SCH (19:34)
[2021-08-31] MEDS: *HR* Enoxaparin 40 MG/0.4 ML SYRINGE SQ SCH (06:05)
[2021-08-31] MEDS: BuPROPion SR (12 HR) 100 MG TABLET PO SCH ×2 (07:46→18:56)
[2021-08-31] MEDS: Gabapentin 300 MG CAPSULE PO SCH ×2 (07:47→21:01)
[2021-08-31] MEDS: amLODIPine 5 MG TABLET PO SCH (07:47)
[2021-08-31] MEDS: Aspirin Enteric Coated 81 MG Tablet PO SCH (07:47)
[2021-08-31] MEDS: carvediloL 6.25 MG TABLET PO SCH ×2 (07:47→16:53)
[2021-08-31] MEDS: Insulin DETEMIR 100 UNIT/ML X5UNITS SUBQ SCH (08:01)
[2021-08-31] MEDS: Insulin LISPRO 300 UNITS/3 ML VIAL SUBQ SCH ×4 (08:11→22:05)
[2021-08-31] MEDS: *HR* OxyCODONE/APAP 10/325 TABLET PO PRN (16:54)
[2021-08-31] MEDS: diazePAM 5 MG TABLET PO PRN (18:56)
[2021-08-31] MEDS: Acetaminophen 325 MG TABLET PO PRN (18:56)
[2021-08-31] MEDS: QUEtiapine Fumarate 25 MG TABLET PO SCH (21:02)
[2021-09-01] MEDS: *HR* Enoxaparin 40 MG/0.4 ML SYRINGE SQ SCH (06:46)
[2021-09-01] MEDS: BuPROPion SR (12 HR) 100 MG TABLET PO SCH ×2 (06:46→18:31)
[2021-09-01] MEDS: *HR* OxyCODONE/APAP 10/325 TABLET PO PRN ×2 (07:46→20:27)
[2021-09-01 09:00] LABS: Basophils # 0.1 K/mcL (0.0-0.2); Eosinophils # 0.2 K/mcL (0.0-0.6); Eosinophils % 3.5 %; Hematocrit 38.1 % (35.3-44.9); Hemoglobin 12.7 g/dL (11.5-15.4); Immature Granulocytes % 0.2 % (0-4); Lymphocytes # 2.4 K/mcL (0.6-4.6); Lymphocytes % 39.7 %; Mean Corpuscular HGB Conc 33.3 g/dL (31.6-35.5); Mean Corpuscular Hemoglobin 29.9 pg (28.0-33.3); Mean Corpuscular Volume 89.6 fL (83.0-100.0); Mean Platelet Volume 9.3 fL (9.4-12.4); Monocytes # 0.5 K/mcL (0.0-1.3); Monocytes % 7.6 %; Neutrophils # 2.9 K/mcL (1.6-8.9); Platelet Count 219 K/mcL (140-400); Red Blood Count 4.25 M/mcL (3.82-4.97); Red Cell Distribution Width 13.2 % (11.5-14.5)
[2021-09-01 09:15] LABS: BUN/Creatinine Ratio 16 (6-26); Blood Urea Nitrogen 14 mg/dL (8-23); Carbon Dioxide 27 mEq/L (23-29); Chloride 105 mEq/L (98-107); Glucose 131 mg/dL (70-105); Osmolality,Calculated 294 (280-300); Potassium 3.5 mEq/L (3.5-5.1); Sodium 141 mEq/L (136-145); eGFR For African Americans > 60 (> 60); eGFR For Non-African Americans > 60 (> 60)
[2021-09-01] MEDS: Insulin LISPRO 300 UNITS/3 ML VIAL SUBQ SCH ×4 (09:20→20:27)
[2021-09-01] MEDS: Gabapentin 300 MG CAPSULE PO SCH ×2 (09:21→20:27)
[2021-09-01] MEDS: amLODIPine 5 MG TABLET PO SCH (09:21)
[2021-09-01] MEDS: Aspirin Enteric Coated 81 MG Tablet PO SCH (09:22)
[2021-09-01] MEDS: carvediloL 6.25 MG TABLET PO SCH ×2 (09:22→16:56)
[2021-09-01] MEDS: Insulin DETEMIR 100 UNIT/ML X5UNITS SUBQ SCH (09:23)
[2021-09-01] MEDS: Ergocalciferol (VIT D2) 50,000 UNIT (1.25MG) CAP PO SCH (11:28)
[2021-09-01] MEDS: QUEtiapine Fumarate 25 MG TABLET PO SCH (20:28)
[2021-09-02] MEDS: BuPROPion SR (12 HR) 100 MG TABLET PO SCH ×2 (06:42→20:14)
[2021-09-02] MEDS: *HR* Enoxaparin 40 MG/0.4 ML SYRINGE SQ SCH (06:42)
[2021-09-02] MEDS: Aspirin Enteric Coated 81 MG Tablet PO SCH (10:20)
[2021-09-02] MEDS: amLODIPine 5 MG TABLET PO SCH (10:21)
[2021-09-02] MEDS: Gabapentin 300 MG CAPSULE PO SCH ×2 (10:21→20:14)
[2021-09-02] MEDS: carvediloL 6.25 MG TABLET PO SCH ×2 (10:21→16:44)
[2021-09-02] MEDS: Insulin LISPRO 300 UNITS/3 ML VIAL SUBQ SCH ×4 (10:22→20:25)
[2021-09-02] MEDS: *HR* OxyCODONE/APAP 10/325 TABLET PO PRN ×2 (10:28→20:14)
[2021-09-02] MEDS: Insulin DETEMIR 100 UNIT/ML X5UNITS SUBQ SCH (10:33)
[2021-09-02] MEDS: QUEtiapine Fumarate 25 MG TABLET PO SCH (20:14)
[2021-09-03] MEDS: *HR* Enoxaparin 40 MG/0.4 ML SYRINGE SQ SCH (07:02)
[2021-09-03] MEDS: BuPROPion SR (12 HR) 100 MG TABLET PO SCH ×2 (07:02→21:12)
[2021-09-03] MEDS: *HR* OxyCODONE/APAP 10/325 TABLET PO PRN ×2 (07:05→17:43)
[2021-09-03] MEDS: Insulin LISPRO 300 UNITS/3 ML VIAL SUBQ SCH ×4 (07:56→21:39)
[2021-09-03] MEDS: Aspirin Enteric Coated 81 MG Tablet PO SCH (10:16)
[2021-09-03] MEDS: Gabapentin 300 MG CAPSULE PO SCH ×2 (10:16→21:13)
[2021-09-03] MEDS: amLODIPine 5 MG TABLET PO SCH (10:16)
[2021-09-03] MEDS: Insulin DETEMIR 100 UNIT/ML X5UNITS SUBQ SCH (10:17)
[2021-09-03] MEDS: carvediloL 6.25 MG TABLET PO SCH ×2 (10:17→17:42)
[2021-09-03] MEDS: QUEtiapine Fumarate 25 MG TABLET PO SCH (21:13)
[2021-09-04] MEDS: *HR* Enoxaparin 40 MG/0.4 ML SYRINGE SQ SCH (06:08)
[2021-09-04] MEDS: Aspirin Enteric Coated 81 MG Tablet PO SCH (08:12)
[2021-09-04] MEDS: Gabapentin 300 MG CAPSULE PO SCH ×2 (08:12→21:21)
[2021-09-04] MEDS: carvediloL 6.25 MG TABLET PO SCH ×2 (08:12→16:41)
[2021-09-04] MEDS: BuPROPion SR (12 HR) 100 MG TABLET PO SCH ×2 (08:13→18:51)
[2021-09-04] MEDS: amLODIPine 5 MG TABLET PO SCH (08:13)
[2021-09-04] MEDS: Insulin DETEMIR 100 UNIT/ML X5UNITS SUBQ SCH (08:15)
[2021-09-04] MEDS: Insulin LISPRO 300 UNITS/3 ML VIAL SUBQ SCH ×4 (08:20→21:22)
[2021-09-04] MEDS: *HR* OxyCODONE/APAP 10/325 TABLET PO PRN ×2 (09:19→16:51)
[2021-09-04] MEDS: QUEtiapine Fumarate 25 MG TABLET PO SCH (21:21)
[2021-09-05] MEDS: *HR* Enoxaparin 40 MG/0.4 ML SYRINGE SQ SCH (05:51)
[2021-09-05] MEDS: Insulin DETEMIR 100 UNIT/ML X5UNITS SUBQ SCH (08:45)
[2021-09-05] MEDS: BuPROPion SR (12 HR) 100 MG TABLET PO SCH ×2 (08:45→18:26)
[2021-09-05] MEDS: Gabapentin 300 MG CAPSULE PO SCH ×2 (08:46→20:53)
[2021-09-05] MEDS: Aspirin Enteric Coated 81 MG Tablet PO SCH (08:46)
[2021-09-05] MEDS: amLODIPine 5 MG TABLET PO SCH (08:46)
[2021-09-05] MEDS: carvediloL 6.25 MG TABLET PO SCH ×2 (08:46→18:26)
[2021-09-05] MEDS: Insulin LISPRO 300 UNITS/3 ML VIAL SUBQ SCH ×4 (08:46→20:53)
[2021-09-05] MEDS: *HR* OxyCODONE/APAP 10/325 TABLET PO PRN ×2 (09:25→22:02)
[2021-09-05] MEDS: QUEtiapine Fumarate 25 MG TABLET PO SCH (20:53)
[2021-09-06] MEDS: BuPROPion SR (12 HR) 100 MG TABLET PO SCH ×2 (06:35→17:19)
[2021-09-06] MEDS: *HR* Enoxaparin 40 MG/0.4 ML SYRINGE SQ SCH (06:35)
[2021-09-06] MEDS: Insulin LISPRO 300 UNITS/3 ML VIAL SUBQ SCH ×4 (08:27→20:25)
[2021-09-06] MEDS: amLODIPine 5 MG TABLET PO SCH (08:28)
[2021-09-06] MEDS: carvediloL 6.25 MG TABLET PO SCH ×2 (08:28→17:19)
[2021-09-06] MEDS: Aspirin Enteric Coated 81 MG Tablet PO SCH (08:28)
[2021-09-06] MEDS: Gabapentin 300 MG CAPSULE PO SCH ×2 (08:28→20:24)
[2021-09-06] MEDS: Insulin DETEMIR 100 UNIT/ML X5UNITS SUBQ SCH (09:29)
[2021-09-06] MEDS: *HR* OxyCODONE/APAP 10/325 TABLET PO PRN ×2 (10:51→17:18)
[2021-09-06] MEDS: QUEtiapine Fumarate 25 MG TABLET PO SCH (20:24)
[2021-09-07] MEDS: BuPROPion SR (12 HR) 100 MG TABLET PO SCH ×2 (06:23→20:16)
[2021-09-07] MEDS: *HR* Enoxaparin 40 MG/0.4 ML SYRINGE SQ SCH (06:23)
[2021-09-07] MEDS: Gabapentin 300 MG CAPSULE PO SCH ×2 (08:31→20:16)
[2021-09-07] MEDS: Aspirin Enteric Coated 81 MG Tablet PO SCH (08:31)
[2021-09-07] MEDS: amLODIPine 5 MG TABLET PO SCH (08:31)
[2021-09-07] MEDS: carvediloL 6.25 MG TABLET PO SCH ×2 (08:31→15:54)
[2021-09-07] MEDS: Insulin DETEMIR 100 UNIT/ML X5UNITS SUBQ SCH (08:31)
[2021-09-07] MEDS: Insulin LISPRO 300 UNITS/3 ML VIAL SUBQ SCH ×4 (08:32→20:16)
[2021-09-07] MEDS: *HR* OxyCODONE/APAP 10/325 TABLET PO PRN ×2 (08:50→15:54)
[2021-09-07] MEDS: Acetaminophen 325 MG TABLET PO PRN (13:49)
[2021-09-07] MEDS: diazePAM 5 MG TABLET PO PRN (15:53)
[2021-09-07] MEDS: QUEtiapine Fumarate 25 MG TABLET PO SCH (20:16)
[2021-09-08] MEDS: *HR* Enoxaparin 40 MG/0.4 ML SYRINGE SQ SCH (06:05)
[2021-09-08] MEDS: Insulin DETEMIR 100 UNIT/ML X5UNITS SUBQ SCH (08:13)
[2021-09-08] MEDS: Aspirin Enteric Coated 81 MG Tablet PO SCH (08:14)
[2021-09-08] MEDS: Ergocalciferol (VIT D2) 50,000 UNIT (1.25MG) CAP PO SCH (08:14)
[2021-09-08] MEDS: Insulin LISPRO 300 UNITS/3 ML VIAL SUBQ SCH ×4 (08:15→20:21)
[2021-09-08] MEDS: BuPROPion SR (12 HR) 100 MG TABLET PO SCH ×2 (08:15→18:09)
[2021-09-08] MEDS: carvediloL 6.25 MG TABLET PO SCH ×2 (08:15→18:09)
[2021-09-08] MEDS: amLODIPine 5 MG TABLET PO SCH (08:16)
[2021-09-08] MEDS: Gabapentin 300 MG CAPSULE PO SCH ×2 (08:16→20:13)
[2021-09-08] MEDS: diazePAM 5 MG TABLET PO PRN (20:14)
[2021-09-08] MEDS: QUEtiapine Fumarate 25 MG TABLET PO SCH (20:14)
[2021-09-09] MEDS: *HR* OxyCODONE/APAP 10/325 TABLET PO PRN ×2 (01:34→16:16)
[2021-09-09] MEDS: BuPROPion SR (12 HR) 100 MG TABLET PO SCH ×2 (06:12→17:39)
[2021-09-09] MEDS: *HR* Enoxaparin 40 MG/0.4 ML SYRINGE SQ SCH (06:12)
[2021-09-09] MEDS: Insulin LISPRO 300 UNITS/3 ML VIAL SUBQ SCH ×4 (07:15→20:52)
[2021-09-09 08:01] VITALS: RESP 18
[2021-09-09] MEDS: carvediloL 6.25 MG TABLET PO SCH ×2 (08:06→16:09)
[2021-09-09] MEDS: Aspirin Enteric Coated 81 MG Tablet PO SCH (08:06)
[2021-09-09] MEDS: Gabapentin 300 MG CAPSULE PO SCH ×2 (08:06→19:45)
[2021-09-09] MEDS: amLODIPine 5 MG TABLET PO SCH (08:06)
[2021-09-09] MEDS: Insulin DETEMIR 100 UNIT/ML X5UNITS SUBQ SCH (10:27)
[2021-09-09] MEDS: QUEtiapine Fumarate 25 MG TABLET PO SCH (19:44)
[2021-09-09] MEDS: diazePAM 5 MG TABLET PO PRN (19:44)
[2021-09-10] MEDS: *HR* OxyCODONE/APAP 10/325 TABLET PO PRN ×2 (02:56→20:35)
[2021-09-10] MEDS: *HR* Enoxaparin 40 MG/0.4 ML SYRINGE SQ SCH (06:06)
[2021-09-10] MEDS: BuPROPion SR (12 HR) 100 MG TABLET PO SCH ×2 (06:06→20:31)
[2021-09-10] MEDS: Insulin LISPRO 300 UNITS/3 ML VIAL SUBQ SCH ×4 (07:57→20:30)
[2021-09-10] MEDS: Gabapentin 300 MG CAPSULE PO SCH ×2 (07:57→20:31)
[2021-09-10] MEDS: carvediloL 6.25 MG TABLET PO SCH ×2 (07:58→16:16)
[2021-09-10] MEDS: Aspirin Enteric Coated 81 MG Tablet PO SCH (07:58)
[2021-09-10] MEDS: amLODIPine 5 MG TABLET PO SCH (07:58)
[2021-09-10] MEDS: Insulin DETEMIR 100 UNIT/ML X5UNITS SUBQ SCH (09:43)
[2021-09-10] MEDS: QUEtiapine Fumarate 25 MG TABLET PO SCH (20:31)
[2021-09-11] MEDS: *HR* Enoxaparin 40 MG/0.4 ML SYRINGE SQ SCH (05:54)
[2021-09-11 07:36] VITALS: BP 126/61; PULSE 74; TEMP 98.5; O2SAT 97
[2021-09-11] MEDS: Aspirin Enteric Coated 81 MG Tablet PO SCH (09:50)
[2021-09-11] MEDS: carvediloL 6.25 MG TABLET PO SCH (09:50)
[2021-09-11] MEDS: BuPROPion SR (12 HR) 100 MG TABLET PO SCH (09:50)
[2021-09-11] MEDS: Gabapentin 300 MG CAPSULE PO SCH (09:51)
[2021-09-11] MEDS: amLODIPine 5 MG TABLET PO SCH (09:51)
[2021-09-11] MEDS: Insulin LISPRO 300 UNITS/3 ML VIAL SUBQ SCH ×2 (09:51→11:30)
[2021-09-11] MEDS: Insulin DETEMIR 100 UNIT/ML X5UNITS SUBQ SCH (09:53)
[2021-09-11] MEDS: *HR* OxyCODONE/APAP 10/325 TABLET PO PRN (09:59)
== END 2021-09-11 14:06 | disposition home health service (06) | DRG 563 ==
LOC: INPPIK 08-17 18:44
PROVIDERS: ADMIT Internal Medicine; ATTEND Internal Medicine

== ENCOUNTER 2022-06-02 14:59 | Inpatient (IN) ==
[2022-06-02] MEDS ORDERED: Nitroglycerin 0.4 MG TAB.SUBL SL PRN (15:28)
[2022-06-02] MEDS ORDERED: *HR* Dextrose 50 % in Water (Syg) 50 ML SYRINGE IVP PRN (15:33)
[2022-06-02] MEDS ORDERED: Dextrose Gel 15 GM/37.5 ML TUBE PO PRN ×2 (15:33)
[2022-06-02] MEDS ORDERED: D5% in Water 1,000 ML IVC PRN (15:33)
[2022-06-02] MEDS ORDERED: Ondansetron ODT 4 MG TAB.RAPDIS SL PRN (15:36)
[2022-06-02] MEDS ORDERED: Ipratropium/Albuterol Neb 3 ML IH PRN (15:38)
[2022-06-02] MEDS: Insulin LISPRO 300 UNITS/3 ML VIAL SUBQ SCH ×2 (20:59→21:46)
[2022-06-02] MEDS: carvediloL 6.25 MG TABLET PO SCH (21:00)
[2022-06-02] MEDS: BuPROPion SR (12 HR) 100 MG TABLET PO SCH (21:17)
[2022-06-02] MEDS: Ranolazine 500 MG TAB.ER.12H PO SCH (21:17)
[2022-06-02] MEDS: Magnesium Oxide 400 MG TABLET PO SCH (21:18)
[2022-06-02] MEDS: QUEtiapine Fumarate 25 MG TABLET PO SCH (21:18)
[2022-06-02] MEDS: Gabapentin 300 MG CAPSULE PO SCH (21:18)
[2022-06-02] MEDS: *HR* Heparin 5,000 UNIT/ML VIAL SQ SCH ×2 (21:19→21:38)
[2022-06-02] MEDS: Acetaminophen 325 MG TABLET PO PRN (21:24)
[2022-06-03] MEDS: *HR* Heparin 5,000 UNIT/ML VIAL SQ SCH ×3 (05:45→21:21)
[2022-06-03 07:19] LABS: Basophils # 0.1 K/mcL (0.0-0.2); Basophils % 1.1 %; Eosinophils # 0.2 K/mcL (0.0-0.6); Hematocrit 37.5 % (35.3-44.9); Immature Granulocytes % 0.3 % (0-4); Lymphocytes # 2.7 K/mcL (0.6-4.6); Lymphocytes % 42.5 %; Mean Corpuscular Hemoglobin 29.5 pg (28.0-33.3); Mean Corpuscular Volume 92.1 fL (83.0-100.0); Mean Platelet Volume 9.1 fL (9.4-12.4); Monocytes # 0.5 K/mcL (0.0-1.3); Monocytes % 7.3 %; Neutrophils # 2.9 K/mcL (1.6-8.9); Nucleated Red Blood Cells 0.3 /100 WBC (0); Platelet Count 295 K/mcL (140-400); Red Blood Count 4.07 M/mcL (3.82-4.97); Red Cell Distribution Width 13.5 % (11.5-14.5); Segmented Neutrophils % 45.8 %; White Blood Count 6.3 K/mcL (4.3-11.1)
[2022-06-03] MEDS: carvediloL 6.25 MG TABLET PO SCH ×3 (07:41→17:38)
[2022-06-03 07:43] LABS: Potassium 4.4 mEq/L (3.5-5.1)
[2022-06-03] MEDS: Gabapentin 300 MG CAPSULE PO SCH ×2 (08:23→20:05)
[2022-06-03] MEDS: Ranolazine 500 MG TAB.ER.12H PO SCH ×2 (08:23→20:05)
[2022-06-03] MEDS: Insulin LISPRO 300 UNITS/3 ML VIAL SUBQ SCH ×4 (08:23→20:05)
[2022-06-03] MEDS: BuPROPion SR (12 HR) 100 MG TABLET PO SCH ×2 (08:23→20:04)
[2022-06-03] MEDS: Magnesium Oxide 400 MG TABLET PO SCH ×2 (08:23→20:04)
[2022-06-03] MEDS ORDERED: *HR* GlipiZIDE XL (24 HR) 2.5 MG TABLET PO SCH (09:00)
[2022-06-03] MEDS: Aspirin Enteric Coated 81 MG Tablet PO SCH (09:09)
[2022-06-03] MEDS: amLODIPine 5 MG TABLET PO SCH (09:09)
[2022-06-03] MEDS: Insulin DETEMIR 100 UNIT/ML X5UNITS SUBQ SCH (09:09)
[2022-06-03] MEDS: Acetaminophen 325 MG TABLET PO PRN ×2 (10:06→18:52)
[2022-06-03] MEDS: QUEtiapine Fumarate 25 MG TABLET PO SCH (20:05)
[2022-06-04] MEDS: *HR* Heparin 5,000 UNIT/ML VIAL SQ SCH ×3 (05:39→21:33)
[2022-06-04] MEDS: Magnesium Oxide 400 MG TABLET PO SCH ×2 (08:07→19:17)
[2022-06-04] MEDS: carvediloL 6.25 MG TABLET PO SCH ×2 (08:07→17:06)
[2022-06-04] MEDS: BuPROPion SR (12 HR) 100 MG TABLET PO SCH ×2 (08:07→19:17)
[2022-06-04] MEDS: Ranolazine 500 MG TAB.ER.12H PO SCH ×2 (08:07→19:17)
[2022-06-04] MEDS: Gabapentin 300 MG CAPSULE PO SCH ×2 (08:07→19:17)
[2022-06-04] MEDS: Aspirin Enteric Coated 81 MG Tablet PO SCH (08:07)
[2022-06-04] MEDS: amLODIPine 5 MG TABLET PO SCH (08:07)
[2022-06-04] MEDS: Acetaminophen 325 MG TABLET PO PRN ×2 (08:07→19:18)
[2022-06-04] MEDS: Insulin LISPRO 300 UNITS/3 ML VIAL SUBQ SCH ×4 (08:08→19:19)
[2022-06-04] MEDS: Insulin DETEMIR 100 UNIT/ML X5UNITS SUBQ SCH (09:05)
[2022-06-04] MEDS: QUEtiapine Fumarate 25 MG TABLET PO SCH (19:17)
[2022-06-05] MEDS: *HR* Heparin 5,000 UNIT/ML VIAL SQ SCH ×3 (04:27→20:35)
[2022-06-05] MEDS: carvediloL 6.25 MG TABLET PO SCH ×2 (08:15→16:08)
[2022-06-05] MEDS: Magnesium Oxide 400 MG TABLET PO SCH ×2 (08:16→20:34)
[2022-06-05] MEDS: Acetaminophen 325 MG TABLET PO PRN (08:16)
[2022-06-05] MEDS: Ranolazine 500 MG TAB.ER.12H PO SCH ×2 (08:16→20:34)
[2022-06-05] MEDS: Gabapentin 300 MG CAPSULE PO SCH ×2 (08:16→20:34)
[2022-06-05] MEDS: amLODIPine 5 MG TABLET PO SCH (08:16)
[2022-06-05] MEDS: BuPROPion SR (12 HR) 100 MG TABLET PO SCH ×2 (08:16→20:34)
[2022-06-05] MEDS: Aspirin Enteric Coated 81 MG Tablet PO SCH (08:16)
[2022-06-05] MEDS: Insulin LISPRO 300 UNITS/3 ML VIAL SUBQ SCH ×4 (08:17→20:33)
[2022-06-05] MEDS: Insulin DETEMIR 100 UNIT/ML X5UNITS SUBQ SCH (09:10)
[2022-06-05] MEDS: Ergocalciferol (VIT D2) 50,000 UNIT (1.25MG) CAP PO SCH ×3 (16:08→16:12)
[2022-06-05] MEDS: QUEtiapine Fumarate 25 MG TABLET PO SCH (20:34)
[2022-06-06] MEDS: *HR* Heparin 5,000 UNIT/ML VIAL SQ SCH ×3 (05:38→21:18)
[2022-06-06] MEDS: Ranolazine 500 MG TAB.ER.12H PO SCH ×2 (10:45→21:18)
[2022-06-06] MEDS: Aspirin Enteric Coated 81 MG Tablet PO SCH (10:45)
[2022-06-06] MEDS: Gabapentin 300 MG CAPSULE PO SCH ×2 (10:45→21:18)
[2022-06-06] MEDS: Magnesium Oxide 400 MG TABLET PO SCH ×2 (10:46→21:18)
[2022-06-06] MEDS: BuPROPion SR (12 HR) 100 MG TABLET PO SCH ×2 (10:46→21:17)
[2022-06-06] MEDS: amLODIPine 5 MG TABLET PO SCH (10:46)
[2022-06-06] MEDS: carvediloL 6.25 MG TABLET PO SCH ×2 (10:46→17:29)
[2022-06-06] MEDS: Insulin LISPRO 300 UNITS/3 ML VIAL SUBQ SCH ×4 (10:47→21:29)
[2022-06-06] MEDS: Insulin DETEMIR 100 UNIT/ML X5UNITS SUBQ SCH (10:47)
[2022-06-06] MEDS: Acetaminophen 325 MG TABLET PO PRN (17:30)
[2022-06-06] MEDS: Bacitracin/PolymyxinB OPTH Oin 3.5 APPL/3.5 GM TUBE LEFT EYE SCH ×2 (18:11→21:19)
[2022-06-06] MEDS: QUEtiapine Fumarate 25 MG TABLET PO SCH (21:17)
[2022-06-07] MEDS: *HR* Heparin 5,000 UNIT/ML VIAL SQ SCH ×3 (05:36→21:30)
[2022-06-07 07:54] LABS: Hematocrit 37.8 % (35.3-44.9); Hemoglobin 12.4 g/dL (11.5-15.4); Mean Corpuscular HGB Conc 32.8 g/dL (31.6-35.5); Mean Corpuscular Hemoglobin 30.2 pg (28.0-33.3); Mean Platelet Volume 9.3 fL (9.4-12.4); Platelet Count 291 K/mcL (140-400); Red Blood Count 4.11 M/mcL (3.82-4.97); Red Cell Distribution Width 13.5 % (11.5-14.5); White Blood Count 4.3 K/mcL (4.3-11.1)
[2022-06-07] MEDS: Acetaminophen 325 MG TABLET PO PRN (08:18)
[2022-06-07] MEDS: Magnesium Oxide 400 MG TABLET PO SCH ×2 (08:18→21:30)
[2022-06-07] MEDS: Aspirin Enteric Coated 81 MG Tablet PO SCH (08:18)
[2022-06-07] MEDS: BuPROPion SR (12 HR) 100 MG TABLET PO SCH ×2 (08:18→21:30)
[2022-06-07] MEDS: Ranolazine 500 MG TAB.ER.12H PO SCH ×2 (08:19→21:30)
[2022-06-07] MEDS: carvediloL 6.25 MG TABLET PO SCH ×2 (08:19→17:31)
[2022-06-07] MEDS: Gabapentin 300 MG CAPSULE PO SCH ×2 (08:19→21:30)
[2022-06-07] MEDS: Bacitracin/PolymyxinB OPTH Oin 3.5 APPL/3.5 GM TUBE LEFT EYE SCH ×2 (08:20→21:29)
[2022-06-07] MEDS: amLODIPine 5 MG TABLET PO SCH (08:20)
[2022-06-07] MEDS: Insulin LISPRO 300 UNITS/3 ML VIAL SUBQ SCH ×4 (08:20→21:31)
[2022-06-07 09:27] LABS: Calcium 9.1 mg/dL (8.6-10.3); Potassium 4.5 mEq/L (3.5-5.1)
[2022-06-07] MEDS: Insulin DETEMIR 100 UNIT/ML X5UNITS SUBQ SCH (09:52)
[2022-06-07] MEDS: QUEtiapine Fumarate 25 MG TABLET PO SCH (21:30)
[2022-06-08] MEDS: *HR* Heparin 5,000 UNIT/ML VIAL SQ SCH ×3 (05:49→21:14)
[2022-06-08] MEDS: Insulin LISPRO 300 UNITS/3 ML VIAL SUBQ SCH ×4 (10:11→21:17)
[2022-06-08] MEDS: BuPROPion SR (12 HR) 100 MG TABLET PO SCH ×2 (10:12→21:08)
[2022-06-08] MEDS: Acetaminophen 325 MG TABLET PO PRN (10:12)
[2022-06-08] MEDS: Magnesium Oxide 400 MG TABLET PO SCH ×2 (10:13→21:09)
[2022-06-08] MEDS: amLODIPine 5 MG TABLET PO SCH (10:13)
[2022-06-08] MEDS: carvediloL 6.25 MG TABLET PO SCH ×2 (10:13→17:10)
[2022-06-08] MEDS: Ranolazine 500 MG TAB.ER.12H PO SCH ×2 (10:13→21:08)
[2022-06-08] MEDS: Insulin DETEMIR 100 UNIT/ML X5UNITS SUBQ SCH (10:13)
[2022-06-08] MEDS: Gabapentin 300 MG CAPSULE PO SCH ×2 (10:13→21:08)
[2022-06-08] MEDS: Aspirin Enteric Coated 81 MG Tablet PO SCH (10:14)
[2022-06-08] MEDS: Bacitracin/PolymyxinB OPTH Oin 3.5 APPL/3.5 GM TUBE LEFT EYE SCH ×2 (10:14→21:22)
[2022-06-08] MEDS: QUEtiapine Fumarate 25 MG TABLET PO SCH (21:08)
[2022-06-09] MEDS: *HR* Heparin 5,000 UNIT/ML VIAL SQ SCH ×3 (05:09→21:22)
[2022-06-09] MEDS: Insulin DETEMIR 100 UNIT/ML X5UNITS SUBQ SCH (08:39)
[2022-06-09] MEDS: Insulin LISPRO 300 UNITS/3 ML VIAL SUBQ SCH ×4 (08:40→20:23)
[2022-06-09] MEDS: amLODIPine 5 MG TABLET PO SCH (08:42)
[2022-06-09] MEDS: carvediloL 6.25 MG TABLET PO SCH ×2 (08:42→17:40)
[2022-06-09] MEDS: Ranolazine 500 MG TAB.ER.12H PO SCH ×2 (08:43→20:24)
[2022-06-09] MEDS: BuPROPion SR (12 HR) 100 MG TABLET PO SCH ×2 (08:43→20:24)
[2022-06-09] MEDS: Magnesium Oxide 400 MG TABLET PO SCH ×2 (08:43→20:24)
[2022-06-09] MEDS: Bacitracin/PolymyxinB OPTH Oin 3.5 APPL/3.5 GM TUBE LEFT EYE SCH (08:43)
[2022-06-09] MEDS: Gabapentin 300 MG CAPSULE PO SCH ×2 (08:43→20:24)
[2022-06-09] MEDS: Aspirin Enteric Coated 81 MG Tablet PO SCH (08:43)
[2022-06-09] MEDS: Acetaminophen 325 MG TABLET PO PRN ×2 (13:04→21:22)
[2022-06-09] MEDS: QUEtiapine Fumarate 25 MG TABLET PO SCH (20:23)
[2022-06-10] MEDS: *HR* Heparin 5,000 UNIT/ML VIAL SQ SCH ×3 (06:07→23:19)
[2022-06-10] MEDS: Magnesium Oxide 400 MG TABLET PO SCH ×2 (07:56→20:49)
[2022-06-10] MEDS: amLODIPine 5 MG TABLET PO SCH (07:56)
[2022-06-10] MEDS: Aspirin Enteric Coated 81 MG Tablet PO SCH (07:56)
[2022-06-10] MEDS: carvediloL 6.25 MG TABLET PO SCH ×2 (07:57→17:19)
[2022-06-10] MEDS: BuPROPion SR (12 HR) 100 MG TABLET PO SCH ×2 (07:57→20:49)
[2022-06-10] MEDS: Gabapentin 300 MG CAPSULE PO SCH ×2 (07:57→20:49)
[2022-06-10] MEDS: Ranolazine 500 MG TAB.ER.12H PO SCH ×2 (07:57→20:49)
[2022-06-10] MEDS: Insulin LISPRO 300 UNITS/3 ML VIAL SUBQ SCH ×4 (07:58→22:24)
[2022-06-10] MEDS: Insulin DETEMIR 100 UNIT/ML X5UNITS SUBQ SCH (09:16)
[2022-06-10] MEDS: QUEtiapine Fumarate 25 MG TABLET PO SCH (20:48)
[2022-06-11] MEDS: *HR* Heparin 5,000 UNIT/ML VIAL SQ SCH ×3 (06:36→21:10)
[2022-06-11] MEDS: Insulin LISPRO 300 UNITS/3 ML VIAL SUBQ SCH ×3 (09:02→16:15)
[2022-06-11] MEDS: Insulin DETEMIR 100 UNIT/ML X5UNITS SUBQ SCH (09:03)
[2022-06-11] MEDS: carvediloL 6.25 MG TABLET PO SCH ×2 (09:04→16:14)
[2022-06-11] MEDS: BuPROPion SR (12 HR) 100 MG TABLET PO SCH ×2 (09:04→21:09)
[2022-06-11] MEDS: Magnesium Oxide 400 MG TABLET PO SCH ×2 (09:04→21:10)
[2022-06-11] MEDS: Ranolazine 500 MG TAB.ER.12H PO SCH ×2 (09:04→21:09)
[2022-06-11] MEDS: amLODIPine 5 MG TABLET PO SCH (09:04)
[2022-06-11] MEDS: Aspirin Enteric Coated 81 MG Tablet PO SCH (09:04)
[2022-06-11] MEDS: Gabapentin 300 MG CAPSULE PO SCH ×2 (09:04→21:10)
[2022-06-11] MEDS: Acetaminophen 325 MG TABLET PO PRN (14:06)
[2022-06-11] MEDS: QUEtiapine Fumarate 25 MG TABLET PO SCH (21:10)
[2022-06-12] MEDS: *HR* Heparin 5,000 UNIT/ML VIAL SQ SCH ×3 (05:49→20:57)
[2022-06-12] MEDS: Insulin LISPRO 300 UNITS/3 ML VIAL SUBQ SCH ×4 (06:42→16:35)
[2022-06-12] MEDS: Magnesium Oxide 400 MG TABLET PO SCH ×2 (08:23→20:57)
[2022-06-12] MEDS: Ranolazine 500 MG TAB.ER.12H PO SCH ×2 (08:23→20:57)
[2022-06-12] MEDS: carvediloL 6.25 MG TABLET PO SCH ×2 (08:24→16:35)
[2022-06-12] MEDS: Gabapentin 300 MG CAPSULE PO SCH ×2 (08:24→20:57)
[2022-06-12] MEDS: BuPROPion SR (12 HR) 100 MG TABLET PO SCH ×2 (08:24→20:57)
[2022-06-12] MEDS: Aspirin Enteric Coated 81 MG Tablet PO SCH (08:24)
[2022-06-12] MEDS: amLODIPine 5 MG TABLET PO SCH (08:25)
[2022-06-12] MEDS: Insulin DETEMIR 100 UNIT/ML X5UNITS SUBQ SCH (10:02)
[2022-06-12] MEDS: Ergocalciferol (VIT D2) 50,000 UNIT (1.25MG) CAP PO SCH (16:35)
[2022-06-12] MEDS: QUEtiapine Fumarate 25 MG TABLET PO SCH (20:56)
[2022-06-13] MEDS: Insulin LISPRO 300 UNITS/3 ML VIAL SUBQ SCH ×5 (06:12→20:16)
[2022-06-13] MEDS: *HR* Heparin 5,000 UNIT/ML VIAL SQ SCH ×3 (06:14→22:01)
[2022-06-13] MEDS: Aspirin Enteric Coated 81 MG Tablet PO SCH (08:44)
[2022-06-13] MEDS: Magnesium Oxide 400 MG TABLET PO SCH ×2 (08:45→20:16)
[2022-06-13] MEDS: carvediloL 6.25 MG TABLET PO SCH ×2 (08:45→16:53)
[2022-06-13] MEDS: BuPROPion SR (12 HR) 100 MG TABLET PO SCH ×2 (08:45→20:16)
[2022-06-13] MEDS: Ranolazine 500 MG TAB.ER.12H PO SCH ×2 (08:45→20:16)
[2022-06-13] MEDS: amLODIPine 5 MG TABLET PO SCH (08:45)
[2022-06-13] MEDS: Gabapentin 300 MG CAPSULE PO SCH ×2 (08:45→20:16)
[2022-06-13] MEDS: Insulin DETEMIR 100 UNIT/ML X5UNITS SUBQ SCH (09:28)
[2022-06-13 18:42] VITALS: O2SAT 94
[2022-06-13] MEDS: QUEtiapine Fumarate 25 MG TABLET PO SCH (20:16)
[2022-06-14] MEDS: *HR* Heparin 5,000 UNIT/ML VIAL SQ SCH (05:58)
[2022-06-14 07:39] VITALS: BP 122/63; PULSE 75; RESP 18; TEMP 98
[2022-06-14] MEDS: Insulin LISPRO 300 UNITS/3 ML VIAL SUBQ SCH ×2 (08:02→11:33)
[2022-06-14] MEDS: Insulin DETEMIR 100 UNIT/ML X5UNITS SUBQ SCH (08:24)
[2022-06-14] MEDS: Ranolazine 500 MG TAB.ER.12H PO SCH (08:25)
[2022-06-14] MEDS: BuPROPion SR (12 HR) 100 MG TABLET PO SCH (08:25)
[2022-06-14] MEDS: amLODIPine 5 MG TABLET PO SCH (08:25)
[2022-06-14] MEDS: Magnesium Oxide 400 MG TABLET PO SCH (08:25)
[2022-06-14] MEDS: Gabapentin 300 MG CAPSULE PO SCH (08:25)
[2022-06-14] MEDS: carvediloL 6.25 MG TABLET PO SCH (08:25)
[2022-06-14] MEDS: Aspirin Enteric Coated 81 MG Tablet PO SCH (08:25)
== END 2022-06-14 14:05 | disposition home or self-care (01) | DRG 177 ==
LOC: INPPIK 19:38 → SUATTDRO 19:38 → INPPIK 21:39
PROVIDERS: ADMIT Internal Medicine; ATTEND Nurse Practitioner

== ENCOUNTER 2022-07-09 02:51 | Inpatient (IN) ==
[2022-07-09] MEDS ORDERED: Melatonin 3 MG TABLET PO PRN (06:31)
[2022-07-09] MEDS ORDERED: Acetaminophen 325 MG TABLET PO PRN (06:31)
[2022-07-09] MEDS ORDERED: Ondansetron 4 MG/2 ML VIAL IVP PRN (06:31)
[2022-07-09] MEDS ORDERED: Naloxone 0.4 MG/ML INJ IVP PRN (06:31)
[2022-07-09] MEDS ORDERED: D5% in Water 1,000 ML IVC PRN (06:34)
[2022-07-09] MEDS ORDERED: Dextrose Gel 15 GM/37.5 ML TUBE PO PRN ×2 (06:34)
[2022-07-09] MEDS ORDERED: *HR* Dextrose 50 % in Water (Syg) 50 ML SYRINGE IVP PRN (06:34)
[2022-07-09 07:47] LABS: Hematocrit 36.1 % (35.3-44.9); Hemoglobin 11.8 g/dL (11.5-15.4); Mean Corpuscular HGB Conc 32.7 g/dL (31.6-35.5); Mean Corpuscular Hemoglobin 29.6 pg (28.0-33.3); Mean Corpuscular Volume 90.7 fL (83.0-100.0); Platelet Count 215 K/mcL (140-400); Red Blood Count 3.98 M/mcL (3.82-4.97); Red Cell Distribution Width 13.3 % (11.5-14.5); White Blood Count 5.7 K/mcL (4.3-11.1)
[2022-07-09 07:54] LABS: Magnesium 1.5 mg/dL (1.6-2.6); Phosphorous 2.6 mg/dL (2.7-4.5)
[2022-07-09 07:55] LABS: Calcium 8.7 mg/dL (8.6-10.3); Potassium 3.9 mEq/L (3.5-5.1)
[2022-07-09 07:59] LABS: Prothrombin Time 11.6 Seconds (9.4-12.1)
[2022-07-09 08:02] LABS: Activated Partial Thrombo Time 29.8 Seconds (26.0-36.0)
[2022-07-09] MEDS: Insulin LISPRO 300 UNITS/3 ML VIAL SUBQ SCH ×3 (08:06→17:12)
[2022-07-09] MEDS: carvediloL 6.25 MG TABLET PO SCH ×2 (10:26→17:12)
[2022-07-09] MEDS: amLODIPine 5 MG TABLET PO SCH (10:26)
[2022-07-09] MEDS: Magnesium Oxide 400 MG TABLET PO SCH ×2 (10:26→20:44)
[2022-07-09] MEDS: BuPROPion SR (12 HR) 100 MG TABLET PO SCH ×2 (10:26→20:44)
[2022-07-09] MEDS: Gabapentin 300 MG CAPSULE PO SCH ×2 (10:26→20:44)
[2022-07-09] MEDS: Aspirin Enteric Coated 81 MG Tablet PO SCH (10:26)
[2022-07-09] MEDS: Ranolazine 500 MG TAB.ER.12H PO SCH ×2 (10:26→20:45)
[2022-07-09] MEDS ORDERED: QUEtiapine Fumarate 25 MG TABLET PO SCH (21:00)
[2022-07-09] MEDS: *HR* Heparin 5,000 UNIT/ML VIAL SQ SCH (22:25)
[2022-07-10] MEDS: *HR* Heparin 5,000 UNIT/ML VIAL SQ SCH ×2 (05:20→14:29)
[2022-07-10 07:51] LABS: Basophils % 0.8 %; Eosinophils # 0.1 K/mcL (0.0-0.6); Eosinophils % 2.3 %; Hematocrit 36.9 % (35.3-44.9); Hemoglobin 12.2 g/dL (11.5-15.4); Immature Granulocytes % 0.4 % (0-4); Lymphocytes % 39.1 %; Mean Corpuscular HGB Conc 33.1 g/dL (31.6-35.5); Mean Corpuscular Volume 90.9 fL (83.0-100.0); Mean Platelet Volume 9.2 fL (9.4-12.4); Monocytes # 0.3 K/mcL (0.0-1.3); Monocytes % 5.4 %; Neutrophils # 2.7 K/mcL (1.6-8.9); Platelet Count 216 K/mcL (140-400); Red Blood Count 4.06 M/mcL (3.82-4.97); Red Cell Distribution Width 13.4 % (11.5-14.5); White Blood Count 5.2 K/mcL (4.3-11.1)
[2022-07-10 08:00] LABS: Calcium 8.8 mg/dL (8.6-10.3); Magnesium 1.8 mg/dL (1.6-2.6); Potassium 4.3 mEq/L (3.5-5.1)
[2022-07-10] MEDS: Insulin LISPRO 300 UNITS/3 ML VIAL SUBQ SCH ×3 (08:22→16:16)
[2022-07-10] MEDS: amLODIPine 5 MG TABLET PO SCH (08:28)
[2022-07-10] MEDS: BuPROPion SR (12 HR) 100 MG TABLET PO SCH (08:28)
[2022-07-10] MEDS: Ranolazine 500 MG TAB.ER.12H PO SCH (08:28)
[2022-07-10] MEDS: Aspirin Enteric Coated 81 MG Tablet PO SCH (08:28)
[2022-07-10] MEDS: Gabapentin 300 MG CAPSULE PO SCH (08:28)
[2022-07-10] MEDS: carvediloL 6.25 MG TABLET PO SCH ×2 (08:29→16:20)
[2022-07-10] MEDS: Magnesium Oxide 400 MG TABLET PO SCH (08:29)
[2022-07-10] MEDS ORDERED: Ergocalciferol (VIT D2) 50,000 UNIT (1.25MG) CAP PO SCH (09:00)
[2022-07-10 15:18] VITALS: BP 108/61; PULSE 78; RESP 16; TEMP 97.6; O2SAT 95
== END 2022-07-10 17:06 | disposition still patient (30) | DRG 948 ==
LOC: INPPIK
PROVIDERS: ADMIT Internal Medicine; ATTEND Internal Medicine

== ENCOUNTER 2022-07-10 16:13 | Inpatient (IN) ==
[2022-07-10] MEDS ORDERED: *HR* Dextrose 50 % in Water (Syg) 50 ML SYRINGE IVP PRN (17:09)
[2022-07-10] MEDS ORDERED: Dextrose Gel 15 GM/37.5 ML TUBE PO PRN ×2 (17:09)
[2022-07-10] MEDS ORDERED: D5% in Water 1,000 ML IVC PRN (17:09)
[2022-07-10] MEDS: *HR* Heparin 5,000 UNIT/ML VIAL SQ SCH (18:03)
[2022-07-10] MEDS: Ranolazine 500 MG TAB.ER.12H PO SCH (20:09)
[2022-07-10] MEDS: BuPROPion SR (12 HR) 100 MG TABLET PO SCH (20:09)
[2022-07-10] MEDS: QUEtiapine Fumarate 25 MG TABLET PO SCH (20:09)
[2022-07-10] MEDS: Gabapentin 300 MG CAPSULE PO SCH (20:09)
[2022-07-10] MEDS: Magnesium Oxide 400 MG TABLET PO SCH (20:09)
[2022-07-11] MEDS: Ranolazine 500 MG TAB.ER.12H PO SCH ×2 (07:25→20:25)
[2022-07-11] MEDS: *HR* Heparin 5,000 UNIT/ML VIAL SQ SCH ×2 (07:25→16:36)
[2022-07-11] MEDS: carvediloL 6.25 MG TABLET PO SCH ×2 (07:25→16:36)
[2022-07-11] MEDS: Gabapentin 300 MG CAPSULE PO SCH ×2 (07:25→20:25)
[2022-07-11] MEDS: BuPROPion SR (12 HR) 100 MG TABLET PO SCH ×2 (07:25→20:25)
[2022-07-11] MEDS: Magnesium Oxide 400 MG TABLET PO SCH ×2 (07:25→20:25)
[2022-07-11] MEDS: Insulin LISPRO 300 UNITS/3 ML VIAL SUBQ SCH ×3 (07:29→16:37)
[2022-07-11] MEDS: amLODIPine 5 MG TABLET PO SCH (09:50)
[2022-07-11] MEDS: Aspirin Enteric Coated 81 MG Tablet PO SCH (09:50)
[2022-07-11] MEDS: QUEtiapine Fumarate 25 MG TABLET PO SCH (20:25)
[2022-07-12] MEDS: *HR* Heparin 5,000 UNIT/ML VIAL SQ SCH ×2 (07:33→16:39)
[2022-07-12] MEDS: Gabapentin 300 MG CAPSULE PO SCH ×2 (07:34→20:21)
[2022-07-12] MEDS: Ranolazine 500 MG TAB.ER.12H PO SCH ×2 (07:34→20:20)
[2022-07-12] MEDS: carvediloL 6.25 MG TABLET PO SCH ×2 (07:34→16:39)
[2022-07-12] MEDS: Magnesium Oxide 400 MG TABLET PO SCH ×2 (07:34→20:21)
[2022-07-12] MEDS: Aspirin Enteric Coated 81 MG Tablet PO SCH (07:34)
[2022-07-12] MEDS: BuPROPion SR (12 HR) 100 MG TABLET PO SCH ×2 (07:35→20:21)
[2022-07-12] MEDS: amLODIPine 5 MG TABLET PO SCH (07:35)
[2022-07-12] MEDS: Insulin LISPRO 300 UNITS/3 ML VIAL SUBQ SCH ×3 (07:36→16:27)
[2022-07-12] MEDS: QUEtiapine Fumarate 25 MG TABLET PO SCH (20:21)
[2022-07-13] MEDS: *HR* Heparin 5,000 UNIT/ML VIAL SQ SCH ×2 (05:07→17:36)
[2022-07-13] MEDS: Ranolazine 500 MG TAB.ER.12H PO SCH ×2 (07:44→20:31)
[2022-07-13] MEDS: Gabapentin 300 MG CAPSULE PO SCH ×2 (07:44→20:31)
[2022-07-13] MEDS: carvediloL 6.25 MG TABLET PO SCH ×2 (07:45→17:36)
[2022-07-13] MEDS: BuPROPion SR (12 HR) 100 MG TABLET PO SCH ×2 (07:45→20:31)
[2022-07-13] MEDS: amLODIPine 5 MG TABLET PO SCH (07:45)
[2022-07-13] MEDS: Magnesium Oxide 400 MG TABLET PO SCH ×2 (07:45→20:31)
[2022-07-13] MEDS: Aspirin Enteric Coated 81 MG Tablet PO SCH (07:46)
[2022-07-13] MEDS: Insulin LISPRO 300 UNITS/3 ML VIAL SUBQ SCH ×3 (07:46→16:48)
[2022-07-13] MEDS ORDERED: Ondansetron ODT 4 MG TAB.RAPDIS SL PRN (16:58)
[2022-07-13] MEDS: Acetaminophen 325 MG TABLET PO PRN (17:36)
[2022-07-13] MEDS: QUEtiapine Fumarate 25 MG TABLET PO SCH (20:32)
[2022-07-14] MEDS: Acetaminophen 325 MG TABLET PO PRN ×2 (04:08→16:48)
[2022-07-14] MEDS: *HR* Heparin 5,000 UNIT/ML VIAL SQ SCH ×2 (04:09→17:23)
[2022-07-14] MEDS: Insulin LISPRO 300 UNITS/3 ML VIAL SUBQ SCH ×3 (08:20→16:19)
[2022-07-14] MEDS: amLODIPine 5 MG TABLET PO SCH (08:21)
[2022-07-14] MEDS: Gabapentin 300 MG CAPSULE PO SCH ×2 (08:21→20:06)
[2022-07-14] MEDS: Aspirin Enteric Coated 81 MG Tablet PO SCH (08:21)
[2022-07-14] MEDS: BuPROPion SR (12 HR) 100 MG TABLET PO SCH ×2 (08:22→20:04)
[2022-07-14] MEDS: carvediloL 6.25 MG TABLET PO SCH ×2 (08:22→16:48)
[2022-07-14] MEDS: Ranolazine 500 MG TAB.ER.12H PO SCH ×2 (08:22→20:06)
[2022-07-14] MEDS: Magnesium Oxide 400 MG TABLET PO SCH ×2 (08:22→20:05)
[2022-07-14] MEDS: QUEtiapine Fumarate 25 MG TABLET PO SCH (20:06)
[2022-07-15] MEDS: *HR* Heparin 5,000 UNIT/ML VIAL SQ SCH ×2 (05:02→17:45)
[2022-07-15] MEDS: Insulin LISPRO 300 UNITS/3 ML VIAL SUBQ SCH ×3 (09:45→17:04)
[2022-07-15] MEDS: Ranolazine 500 MG TAB.ER.12H PO SCH ×2 (09:46→20:41)
[2022-07-15] MEDS: amLODIPine 5 MG TABLET PO SCH (09:46)
[2022-07-15] MEDS: carvediloL 6.25 MG TABLET PO SCH ×2 (09:46→17:44)
[2022-07-15] MEDS: Gabapentin 300 MG CAPSULE PO SCH ×2 (09:46→20:41)
[2022-07-15] MEDS: Aspirin Enteric Coated 81 MG Tablet PO SCH (09:46)
[2022-07-15] MEDS: BuPROPion SR (12 HR) 100 MG TABLET PO SCH ×2 (09:46→20:41)
[2022-07-15] MEDS: Magnesium Oxide 400 MG TABLET PO SCH ×2 (09:46→20:42)
[2022-07-15] MEDS: Acetaminophen 325 MG TABLET PO PRN (11:43)
[2022-07-15] MEDS: QUEtiapine Fumarate 25 MG TABLET PO SCH (20:42)
[2022-07-15] MEDS: Budesonide/Formoterol 160/4.5 1 PUFF INH IH SCH (21:27)
[2022-07-16] MEDS: *HR* Heparin 5,000 UNIT/ML VIAL SQ SCH ×2 (06:19→16:50)
[2022-07-16] MEDS: Insulin LISPRO 300 UNITS/3 ML VIAL SUBQ SCH ×3 (09:04→16:54)
[2022-07-16] MEDS: Acetaminophen 325 MG TABLET PO PRN (09:05)
[2022-07-16] MEDS: Gabapentin 300 MG CAPSULE PO SCH ×2 (09:05→20:31)
[2022-07-16] MEDS: Ranolazine 500 MG TAB.ER.12H PO SCH ×2 (09:05→20:32)
[2022-07-16] MEDS: amLODIPine 5 MG TABLET PO SCH (09:05)
[2022-07-16] MEDS: Aspirin Enteric Coated 81 MG Tablet PO SCH (09:05)
[2022-07-16] MEDS: carvediloL 6.25 MG TABLET PO SCH ×2 (09:05→16:50)
[2022-07-16] MEDS: Magnesium Oxide 400 MG TABLET PO SCH ×2 (09:05→20:31)
[2022-07-16] MEDS: BuPROPion SR (12 HR) 100 MG TABLET PO SCH ×2 (09:05→20:31)
[2022-07-16] MEDS: Budesonide/Formoterol 160/4.5 1 PUFF INH IH SCH ×3 (09:55→22:25)
[2022-07-16] MEDS: Simethicone 80 MG TAB.CHEW PO PRN (13:22)
[2022-07-16] MEDS: QUEtiapine Fumarate 25 MG TABLET PO SCH (20:31)
[2022-07-17] MEDS: *HR* Heparin 5,000 UNIT/ML VIAL SQ SCH ×2 (05:19→17:01)
[2022-07-17] MEDS: amLODIPine 5 MG TABLET PO SCH (07:51)
[2022-07-17] MEDS: Magnesium Oxide 400 MG TABLET PO SCH ×2 (07:52→20:00)
[2022-07-17] MEDS: BuPROPion SR (12 HR) 100 MG TABLET PO SCH ×2 (07:52→20:00)
[2022-07-17] MEDS: Aspirin Enteric Coated 81 MG Tablet PO SCH (07:52)
[2022-07-17] MEDS: Gabapentin 300 MG CAPSULE PO SCH ×2 (07:52→20:00)
[2022-07-17] MEDS: carvediloL 6.25 MG TABLET PO SCH ×2 (07:52→17:02)
[2022-07-17] MEDS: Ranolazine 500 MG TAB.ER.12H PO SCH ×2 (07:52→20:00)
[2022-07-17] MEDS: Insulin LISPRO 300 UNITS/3 ML VIAL SUBQ SCH ×4 (07:52→22:21)
[2022-07-17 08:14] LABS: Hematocrit 34.9 % (35.3-44.9); Hemoglobin 11.7 g/dL (11.5-15.4); Mean Corpuscular HGB Conc 33.5 g/dL (31.6-35.5); Mean Corpuscular Hemoglobin 30.5 pg (28.0-33.3); Mean Corpuscular Volume 90.9 fL (83.0-100.0); Mean Platelet Volume 9.3 fL (9.4-12.4); Platelet Count 215 K/mcL (140-400); Red Blood Count 3.84 M/mcL (3.82-4.97); Red Cell Distribution Width 13.2 % (11.5-14.5); White Blood Count 3.8 K/mcL (4.3-11.1)
[2022-07-17 08:32] LABS: Calcium 8.5 mg/dL (8.6-10.3); Potassium 4.2 mEq/L (3.5-5.1)
[2022-07-17] MEDS ORDERED: Ergocalciferol (VIT D2) 50,000 UNIT (1.25MG) CAP PO SCH (09:00)
[2022-07-17] MEDS: Budesonide/Formoterol 160/4.5 1 PUFF INH IH SCH ×2 (09:28→22:30)
[2022-07-17] MEDS: QUEtiapine Fumarate 25 MG TABLET PO SCH (20:00)
[2022-07-17] MEDS ORDERED: Insulin DETEMIR 100 UNIT/ML per UNIT SUBQ SCH (22:06)
[2022-07-18] MEDS: *HR* Heparin 5,000 UNIT/ML VIAL SQ SCH ×2 (05:19→16:33)
[2022-07-18] MEDS: BuPROPion SR (12 HR) 100 MG TABLET PO SCH ×2 (08:54→22:17)
[2022-07-18] MEDS: Gabapentin 300 MG CAPSULE PO SCH ×2 (08:54→22:17)
[2022-07-18] MEDS: carvediloL 6.25 MG TABLET PO SCH ×2 (08:54→16:33)
[2022-07-18] MEDS: Insulin LISPRO 300 UNITS/3 ML VIAL SUBQ SCH ×4 (08:54→22:18)
[2022-07-18] MEDS: Ranolazine 500 MG TAB.ER.12H PO SCH ×2 (08:54→22:17)
[2022-07-18] MEDS: amLODIPine 5 MG TABLET PO SCH (08:54)
[2022-07-18] MEDS: Magnesium Oxide 400 MG TABLET PO SCH ×2 (08:54→22:17)
[2022-07-18] MEDS: Aspirin Enteric Coated 81 MG Tablet PO SCH (08:54)
[2022-07-18] MEDS: Budesonide/Formoterol 160/4.5 1 PUFF INH IH SCH ×2 (09:14→21:04)
[2022-07-18] MEDS: Insulin DETEMIR 100 UNIT/ML X5UNITS SUBQ SCH ×2 (09:36→22:17)
[2022-07-18] MEDS: Acetaminophen 325 MG TABLET PO PRN (17:57)
[2022-07-18] MEDS: QUEtiapine Fumarate 25 MG TABLET PO SCH (22:18)
[2022-07-19] MEDS: *HR* Heparin 5,000 UNIT/ML VIAL SQ SCH ×2 (06:08→16:47)
[2022-07-19] MEDS: Ranolazine 500 MG TAB.ER.12H PO SCH ×2 (08:42→20:43)
[2022-07-19] MEDS: BuPROPion SR (12 HR) 100 MG TABLET PO SCH ×2 (08:43→20:42)
[2022-07-19] MEDS: Aspirin Enteric Coated 81 MG Tablet PO SCH (08:43)
[2022-07-19] MEDS: amLODIPine 5 MG TABLET PO SCH (08:43)
[2022-07-19] MEDS: Gabapentin 300 MG CAPSULE PO SCH ×2 (08:43→20:43)
[2022-07-19] MEDS: Magnesium Oxide 400 MG TABLET PO SCH ×2 (08:43→20:43)
[2022-07-19] MEDS: Insulin LISPRO 300 UNITS/3 ML VIAL SUBQ SCH ×4 (08:43→20:43)
[2022-07-19] MEDS: carvediloL 6.25 MG TABLET PO SCH ×2 (08:43→16:47)
[2022-07-19] MEDS: Insulin DETEMIR 100 UNIT/ML X5UNITS SUBQ SCH ×2 (09:23→20:47)
[2022-07-19] MEDS: Budesonide/Formoterol 160/4.5 1 PUFF INH IH SCH ×2 (10:26→20:59)
[2022-07-19] MEDS: Simethicone 80 MG TAB.CHEW PO PRN (16:47)
[2022-07-19] MEDS: QUEtiapine Fumarate 25 MG TABLET PO SCH (20:43)
[2022-07-19 21:56] VITALS: RESP 16
[2022-07-20] MEDS: *HR* Heparin 5,000 UNIT/ML VIAL SQ SCH (05:20)
[2022-07-20 06:46] VITALS: BP 104/55; PULSE 73; TEMP 98; O2SAT 99
[2022-07-20] MEDS: BuPROPion SR (12 HR) 100 MG TABLET PO SCH (08:40)
[2022-07-20] MEDS: Gabapentin 300 MG CAPSULE PO SCH (08:40)
[2022-07-20] MEDS: Magnesium Oxide 400 MG TABLET PO SCH (08:40)
[2022-07-20] MEDS: amLODIPine 5 MG TABLET PO SCH (08:40)
[2022-07-20] MEDS: Aspirin Enteric Coated 81 MG Tablet PO SCH (08:40)
[2022-07-20] MEDS: Ranolazine 500 MG TAB.ER.12H PO SCH (08:40)
[2022-07-20] MEDS: Insulin LISPRO 300 UNITS/3 ML VIAL SUBQ SCH ×2 (08:41→12:06)
[2022-07-20] MEDS: carvediloL 6.25 MG TABLET PO SCH (08:41)
[2022-07-20] MEDS: Budesonide/Formoterol 160/4.5 1 PUFF INH IH SCH (08:47)
[2022-07-20] MEDS: Insulin DETEMIR 100 UNIT/ML X5UNITS SUBQ SCH (10:47)
[2022-07-20] MEDS ORDERED: Flu Vac QV 22-23 (6MOS UP)/PF 0.5 ML SYRINGE IM ONE (11:41)
== END 2022-07-20 13:32 | disposition home health service (06) | DRG 641 ==
LOC: SUATTDRO 17:10 → INPPIK 17:10
PROVIDERS: ADMIT Internal Medicine; ATTEND Family Medicine